=== PATIENT | female | born 1965 | race Caucasian/White ===

== ENCOUNTER 2018-10-17 18:10 | Emergency (ER) | payer OTHER, SELFPAY ==
[2018-10-17 18:24] VITALS: BP 188/110; PULSE 80; RESP 13; TEMP 36.8; O2SAT 99
[2018-10-17 19:14] LABS: Add Manual Diff / Slide Review NO; Basophils Absolute Auto 0 /uL (0-100); Basophils Percent Auto 0.4 % (0-2); Eosinophils Absolute Auto 0 /uL (0-450); Eosinophils Percent Auto 0.1 % (2-4); Hematocrit 45.6 % (36-46); Hemoglobin 15.6 g/dL (12.0-16.0); Lymphocytes Absolute Auto 1400 /uL (1100-4500); Lymphocytes Percent Auto 15.4 % (25-40); Mean Corpuscular HGB Conc 34.2 % (30-36); Mean Corpuscular Hemoglobin 29.2 PG (26-34); Mean Corpuscular Volume 85.3 fL (80-100); Monocytes Absolute Auto 500 /uL (0-900); Monocytes Percent Auto 4.9 % (3-14); Neutrophils Absolute Auto 7300 /uL (1500-7000); Neutrophils Percent Auto 79.2 % (50-75); Platelet Count 182 X10^3/uL (150-400); Red Blood Cell Count 5.34 X10^6/uL (4.0-5.2); Red Cell Distribution Width 13.3 % (11.6-14.8); White Blood Cell Count 9.3 X10^3/uL (4.5-11.0)
[2018-10-17] MEDS: METOCLOPRAMIDE 10 MG/2 ML INJ IV (19:21)
[2018-10-17] MEDS: SODIUM CHLORIDE 0.9% 1,000 ML 1000 ML IV (19:21)
[2018-10-17] MEDS: KETOROLAC 60 MG/2 ML VIAL 15 MG IV (19:22)
[2018-10-17] MEDS: diphenhydrAMINE 50 MG/ML VIAL 25 MG IV (19:22)
[2018-10-17] MEDS: DEXAMETHASONE 10 MG/ML VIAL IV (19:22)
[2018-10-17 19:31] LABS: Blood Urea Nitrogen 13 mg/dL (7-17); Calcium 9.7 mg/dL (8.4-10.2); Carbon Dioxide 26 mmol/L (22-32); Chloride 101 mmol/L (98-107); Estimated Glomerular Filt Rate > 60.0 mL/min (>60); Glucose 107 mg/dL (70-100); HEMOLYSIS < 15 (0-50); Potassium 3.7 mmol/L (3.4-5.1); Sodium 140 mmol/L (137-145)
[2018-10-17 19:33] LABS: C-Reactive Protein Quant < 0.5 mg/dL (<1.0)
[2018-10-17 19:34] LABS: Erythrocyte Sedimentation Rate 3 MM/HR (0-20)
--- NOTE | 2018-10-17 20:10 | ED_ITS ---
HPI - Headache General Chief Complaint: Headache Stated Complaint: Severe Migraine Time Seen by Provider: 10/17/18 18:26 Source: patient and family Mode of arrival: ambulatory Limitations: no limitations History of Present Illness HPI Narrative: 53-year-old female nonsmoker with history of migraines presents with her in the chief complaint of a gradually worsening left-sided migraine over the course of the day. It is worse with bright lights, loud noise and exertion. It is very typical of prior migraines. She denies any recent head injury nor fever, chills or neurologic symptoms. She denies any neck pain or focal neurologic findings such as numbness, weakness or tingling. At its worst her pain was 9/10, it is about an 8/10 on her arrival MD Complaint: headache and migraine Onset (ago): hour(s) Onset description: gradual Location: left Severity: similar to previous episodes Severity scale (1-10): 9 Quality: aching and throbbing Relieving factors: dark room Exacerbating factors: exertion, light and noise Associated symptoms: nausea and vomiting Treatments prior to arrival: none Related Data Previous Rx's Medication Instructions Recorded azithromycin 250 mg tablet See Rx Instructions PO .COMPLEX #6 07/14/18 tab ondansetron 4 mg PO TID-QID PRN #10 tab 10/17/18 Allergies Allergy/AdvReac Type Severity Reaction Status Date / Time amoxicillin [From Augmentin] Allergy Severe Feels Verified 07/14/18 19:17 like my whole body is bruised clavulanic acid Allergy Severe Feels Verified 07/14/18 19:17 [From Augmentin] like my whole body is bruised prochlorperazine Allergy Mild Verified 07/14/18 19:17 [PROCHLORPERAZINE] acetaminophen [From VICODIN] Allergy Unknown VOMITING Verified 07/14/18 19:17 hydrocodone [From VICODIN] Allergy Unknown VOMITING Verified 07/14/18 19:17 Penicillins [PENICILLINS] Allergy Unknown Verified 07/14/18 19:17 Opioids - Morphine Analogues AdvReac Mild headaches Verified 07/14/18 19:17 [OPIOIDS - MORPHINE ANALOGUES] pseudoephedrine AdvReac Mild insomnia Verified 07/14/18 19:17 [PSEUDOEPHEDRINE] Review of Systems Constitutional Denies chills, Denies fever(s), Reports headache(s), Denies lethargy and Denies weakness Eyes Denies change in vision, Denies eye discharge, Denies irritation and Denies loss of vision ENT Ears, Nose, Mouth, and Throat: Denies change in voice, Reports headache(s), Denies neck pain and Denies sore throat Cardiovascular Denies chest pain, Denies irregular heart rhythm, Denies lightheadedness, Denies palpitations, Denies dyspnea, Denies dyspnea on exertion and Denies orthopnea Respiratory Denies cough, Denies dyspnea, Denies dyspnea on exertion and Denies wheezing Gastrointestinal Gastrointestinal: Denies abdominal pain, Denies change in bowel habits, Denies diarrhea, Denies nausea and Denies vomiting Genitourinary Denies hematuria, Denies flank pain, Denies urinary incontinence and Denies urinary urgency Musculoskeletal Denies neck pain Integumentary/Breasts Denies pruritus, Denies erythema, Denies rash and Denies wounds Neurologic Denies confusion, Reports headache(s), Denies loss of vision and Denies weakness Psychiatric Denies anxiety, Denies confusion, Denies depression, Denies homicidal ideation and Denies suicidal ideation Endocrine Denies palpitations Hematologic/Lymphatic Denies easy bruising Allergic/Immunologic Denies wheezing [facility] Surgical History History of third molar tooth extraction Status post dilation and curettage Family History (Updated 11/08/15 @ 00:00 by Conversion Provider) Father Hypertension Mother Age: 71 Hypertension High cholesterol Social History Smoking Status: Never smoker Family History Father Hypertension Mother Age: 71 Hypertension High cholesterol Social History Smoking Status: Never smoker Exam Narrative Exam Narrative: GENERAL: [53] year old patient appears stated age. Well- nourished, well-developed patient, in mild distress. Massaging her left orthodox, sitting in a dark room HEAD: Atraumatic. Normocephalic. L orthodox tender to palp. No redness, swelling, or palpable blood vessels EYES: Pupils equal round and reactive. Extraocular motions intact. No scleral icterus. No injection or drainage. ENT: Nose without bleeding, purulent drainage. Throat without erythema, tonsillar hypertrophy or exudate. Airway patent. NECK: Trachea midline. Non tender, no meningeal signs CARDIOVASCULAR: Regular rate and rhythm without murmurs, gallops, or rubs. RESPIRATORY: Clear to auscultation. Breath sounds equal bilaterally. No wheezes, rales, or rhonchi. GASTROINTESTINAL: Abdomen soft, non-tender, nondistended. EXTREMITIES: No edema or joint tenderness. BACK: Nontender without deformity or crepitance. No flank tenderness. NEURO: AOx3. SKIN: No rash or erythema of visible areas Initial Vital Signs Initial Vital Signs: Vital Signs Temperature 98.2 F 10/17/18 18:24 Pulse Rate 80 10/17/18 18:24 Respiratory Rate 13 10/17/18 18:24 Blood Pressure 188/110 H 10/17/18 18:24 Pulse Oximetry 99 10/17/18 18:24 Course Orders Ordered: ED Orders 10/17/18 19:00 Basic Metabolic Panel Stat C-Reactive Protein Quant Stat Complete Blood Count AUTO DIFF Stat Erythrocyte Sedimentation Rate Stat Discontinued Medications Dexamethasone (Decadron) 10 mg IV NOW ONE Stop: 10/17/18 18:44 Last Admin: 10/17/18 19:22 Dose: 10 mg Diphenhydramine HCl (Benadryl) 25 mg IV NOW ONE Stop: 10/17/18 18:44 Last Admin: 10/17/18 19:22 Dose: 25 mg Sodium Chloride (Normal Saline 0.9%) 1,000 mls @ 1,000 mls/hr IV BOLUS ONE Stop: 10/17/18 19:42 Last Infusion: 10/17/18 20:31 Dose: 0 mls/hr Admin: 10/17/18 19:21 Dose: 1,000 mls/hr Ketorolac Tromethamine (Toradol) 15 mg IV NOW ONE Stop: 10/17/18 18:44 Last Admin: 10/17/18 19:22 Dose: 15 mg Metoclopramide HCl (Reglan) 10 mg IV NOW ONE Stop: 10/17/18 18:44 Last Admin: 10/17/18 19:21 Dose: 10 mg Ondansetron HCl (Zofran Odt Prepack) 1 bottle MISC SEEINSTR ONE Stop: 10/17/18 20:12 Last Admin: 10/17/18 20:27 Dose: 1 bottle Reevaluation(s) Reevaluation #1: Near complete resolution of symptoms after the above-stated therapies Vital Signs - 8 hr 10/17/18 18:24 10/17/18 20:58 Temperature 98.2 F Pulse Rate 80 79 Respiratory Rate 13 16 Blood Pressure 188/110 H 163/83 H Pulse Oximetry 99 99 MDM - Headache Lab Data Result diagrams: 10/17/18 19:00 10/17/18 19:00 Lab Results 10/17/18 10/17/18 Range/Units 19:00 19:00 WBC 9.3 (4.5-11.0) X10^3/uL RBC 5.34 H (4.0-5.2) X10^6/uL Hgb 15.6 (12.0-16.0) g/dL Hct 45.6 (36-46) % MCV 85.3 (80-100) fL MCH 29.2 (26-34) PG MCHC 34.2 (30-36) % RDW 13.3 (11.6-14.8) % Plt Count 182 (150-400) X10^3/uL Neut % (Auto) 79.2 H (50-75) % Lymph % (Auto) 15.4 L (25-40) % [place] % (Auto) 4.9 (3-14) % Eos % (Auto) 0.1 L (2-4) % Baso % (Auto) 0.4 (0-2) % Neut # (Auto) 7300 H (0577-0647) /uL Lymph # (Auto) 1400 (8941-9241) /uL [place] # (Auto) 500 (0-900) /uL Eos # (Auto) 0 (0-450) /uL Baso # (Auto) 0 (0-100) /uL ESR 3 (0-20) MM/HR Sodium 140 (137-145) mmol/L Potassium 3.7 (3.4-5.1) mmol/L Chloride 101 (98-107) mmol/L Carbon Dioxide 26 (22-32) mmol/L BUN 13 (7-17) mg/dL Creatinine 0.50 L (0.52-1.04) mg/dL Estimated GFR > 60.0 (>60) mL/min BUN/Creatinine Ratio 26.0 H (6-22) Glucose 107 H (70-100) mg/dL Calcium 9.7 (8.4-10.2) mg/dL C-Reactive Protein < 0.5 (<1.0) mg/dL MDM Narrative Medical decision making narrative: Multiple etiologies for patient's symptoms considered including: [Migraine versus subarachnoid hemorrhage versus giant cell arteritis versus other] Patient's symptoms improved or duration of stay with above-stated therapies. Findings and discharge diagnosis discussed with patient/family followed by verbalization of understanding Return precautions discussed with patient/family whom verbalize understanding. Discharge Plan Departure Patient Disposition: Home Clinical Impression: Migraine Qualifiers: Migraine type: unspecified Status migrainosus presence: without status migrainosus Intractability: not intractable Qualified Code(s): G43.909 - Migraine, unspecified, not intractable, without status migrainosus Discharge Date/Time: 10/17/18 20:58 Interventions: ED Discharge Assessment Last Done: 10/17/18 20:58 Instructions: DI for Headache Activity Restrictions/Additional Instructions: *You have been diagnosed with [headache, likely migraine] *What to do: *Take medications as directed *Follow up with your primary care provider in 2-3 days, call for an appointment. Let them know you were seen in the Emergency Department and that we ask that you be seen in follow up *Return to ER if you should have any new, worsening or concerning symptoms Prescriptions: New ondansetron 4 mg tablet,disintegrating 4 mg PO TID-QID PRN (Reason: nausea and vomiting) Qty: 10 RF: 0 No Action azithromycin 250 mg tablet See Rx Instructions PO .COMPLEX Qty: 6 RF: 1 Referrals: Taya Nicholas DO [Primary Care Provider] -
[2018-10-17] MEDS: ONDANSETRON 4 MG ODT PREPACK 1 BOTTLE MISC (20:27)
[2018-10-17 20:58] VITALS: BP 163/83; PULSE 79; RESP 16; O2SAT 99
== END 2018-10-17 20:58 | disposition home or self-care (01) ==
PROVIDERS: Emergency Provider Emergency Medicine; PCP Family Medicine
DX: G43.909 Migraine, unspecified, not intractable, without status migrainosus (principal)
CPT/HCPCS: 36591; 80048; 85025; 85651; 86140; 96361; 96374; 96375; 99283; 99284; J1100; J1200; J1885; J2765

== ENCOUNTER 2018-10-21 09:51 | Emergency (ER) | payer OTHER, SELFPAY ==
[2018-10-21 09:51] VITALS: BP 177/104; PULSE 81; RESP 16; TEMP 36.5; O2SAT 98; BMI 29.7
[2018-10-21 10:30] VITALS: BP 158/92; PULSE 66; RESP 15; O2SAT 98
--- NOTE | 2018-10-21 11:04 | ED_ITS ---
HPI - Dizziness General Chief Complaint: Dizziness Stated Complaint: Dizzy Time Seen by Provider: 10/21/18 10:03 Source: patient Mode of arrival: ambulatory Limitations: no limitations History of Present Illness HPI Narrative: Patient comes to the emergency department complaining of dizziness and ?haziness? that has been going on since treatment for migraine 4 days ago. Patient states that she was feeling better after treatment when she was here on Thursday, and that she went home and slept well. She states that the next day, she felt very tired, which is normal for her after having a migraine. However, she was not able to sleep well that night, and has not slept well any night since. Patient states that for the past 3 nights, she has slept no more than 5 hours, and that prior to seeking treatment for the migraine, she had also not slept well. Patient states that normally, she sleeps 8 hours per night. Patient states she just feels as though her brain is in a haze, and she can't think clearly. She states that when she stands up, she has to take a few seconds to get her bearings, and then she can walk. She states she does not have to hold onto anything while she walks, and is not staggering around. Patient denies incoordination of her extremities, and no focal weakness, numbness, or tingling. No visual changes. No facial weakness. Patient states that she has a longstanding history of migraines, but has never had auras or any symptoms like she is having currently. Patient states she has a vague ache in her temples and behind her eyes. She also states she has a burning hot sensatio n over her neck and the back of her head. No itching or swelling. No known allergic reactions recently. Patient does note that she had a temperature of 100? last night. No dysuria. No nausea or vomiting. No other complaints at this time. Patient states she has been drinking plenty of water every day. Related Data Home Medications Medication Instructions Recorded Confirmed Acidophilus 1 cap PO QPM 10/21/18 10/21/18 iron 1 tab PO QPM 10/21/18 10/21/18 Previous Rx's Medication Instructions Recorded ondansetron 4 mg PO TID-QID PRN #10 tab 10/17/18 Allergies Allergy/AdvReac Type Severity Reaction Status Date / Time amoxicillin [From Augmentin] Allergy Severe Feels Verified 10/21/18 09:56 like my whole body is bruised clavulanic acid Allergy Severe Feels Verified 10/21/18 09:56 [From Augmentin] like my whole body is bruised prochlorperazine Allergy Mild Verified 10/21/18 09:56 [PROCHLORPERAZINE] acetaminophen [From VICODIN] Allergy Unknown VOMITING Verified 10/21/18 09:56 hydrocodone [From VICODIN] Allergy Unknown VOMITING Verified 10/21/18 09:56 Penicillins [PENICILLINS] Allergy Unknown Verified 10/21/18 09:56 Opioids - Morphine Analogues AdvReac Mild headaches Verified 10/21/18 09:56 [OPIOIDS - MORPHINE ANALOGUES] pseudoephedrine AdvReac Mild insomnia Verified 10/21/18 09:56 [PSEUDOEPHEDRINE] Review of Systems Constitutional Constitutional: Denies chills, Denies fatigue, Denies fever(s), Denies frequent falls, Denies lethargy and Denies weakness Comments: Lightheadedness, lack of mental clarity Eyes Eyes: Denies change in vision, Denies eye discharge, Denies irritation and Denies loss of vision ENT Ears, Nose, Mouth, and Throat: Denies change in voice, Denies dizziness, Denies neck pain, Denies sore throat and Denies throat swelling Comments: Headache Cardiovascular Cardiovascular: Denies chest pain, Denies irregular heart rhythm, Denies lightheadedness, Denies palpitations, Denies dyspnea, Denies dyspnea on exertion and Denies orthopnea Respiratory Respiratory: Denies cough, Denies dyspnea, Denies dyspnea on exertion and Denies wheezing Gastrointestinal Gastrointestinal: Denies abdominal pain, Denies change in bowel habits, Denies diarrhea, Denies nausea and Denies vomiting Genitourinary Genitourinary: Denies hematuria, Denies flank pain, Denies urinary incontinence and Denies urinary urgency Musculoskeletal Musculoskeletal: Denies back pain, Denies muscle weakness, Denies neck pain, Denies numbness and Denies tingling Integumentary/Breasts Skin/Breast: Denies pruritus, Denies erythema, Denies rash and Denies wounds Comments: Burning and heat over posterior neck. Neurologic Neurologic: Denies behavioral changes, Denies confusion, Denies dizziness, Denies frequent falls, Denies loss of vision, Denies numbness, Denies tingling and Denies weakness Psychiatric Psychiatric: Denies anxiety, Denies behavioral changes, Denies confusion, Denies depression, Denies homicidal ideation and Denies suicidal ideation Endocrine Endocrine: Denies fatigue, Denies flushing and Denies palpitations Hematologic/Lymphatic Hematologic/Lymphatic: Denies easy bruising Allergic/Immunologic Allergic/Immunologic: Denies urticaria, Denies throat swelling and Denies wheezing [facility] Medical History Migraine (Acute) Right ankle sprain (Acute) Surgical History History of third molar tooth extraction No pertinent past surgical history (Acute) Status post dilation and curettage Family History Father Hypertension Mother Age: 71 Hypertension High cholesterol Social History Smoking Status: Former smoker Family History Father Hypertension Mother Age: 71 Hypertension High cholesterol Social History Smoking Status: Former smoker Exam Initial Vital Signs Initial Vital Signs: Vital Signs Temperature 97.7 F 10/21/18 09:51 Pulse Rate 81 10/21/18 09:51 Respiratory Rate 16 10/21/18 09:51 Blood Pressure 177/104 H 10/21/18 09:51 Pulse Oximetry 98 10/21/18 09:51 Const General: cooperative and well developed Nutritional Appearance: well nourished Orientation: alert, awake, oriented x3 and not confused [facility] Head: normocephalic and atraumatic Ears: external ears normal Nose: external nose normal and No nasal discharge Face and sinus: face symmetric and No dry mucous membranes Mouth: oral mucosae normal and moist mucous membranes Teeth and gingiva: dentition normal Eyes General: appearance normal, both eyes and all related structures Eyelids: eyelids normal Conjunctivae: conjunctivae normal Sclera: sclerae normal Pupils: PERRL EOM: EOM intact bilaterally Neck Neck: normal visual inspection, trachea midline, No lymphadenopathy, No midline deformity and No JVD Lymphatic: No lymphedema Chest Chest: normal inspection of the chest Resp Effort & Inspection: normal respiratory effort, able to speak in complete sentences, no respiratory distress and no use of accessory muscles Auscultation: clear to auscultation bilaterally, no rales, no rhonchi and no wheezes Cardio Rate: regular rate Rhythm: regular rhythm Heart Sounds: no click, no gallops, no murmurs and no rubs Pulses: normal peripheral pulses GI Inspection: non-distended Palpation: soft, no hepatosplenomegaly, No guarding, No pulsatile mass and No tender Auscultation: normal bowel sounds Back/Spine/Pelvis Back: No CVA tenderness Cervical Spine: cervical ROM normal and No pain with cervical ROM Thoracic/Lumbar Spine: thoracic and lumbar spine normal to inspection Skin General: No jaundice and No petechiae Other: Patient has a flat, macular rash involving the back of her neck and her superior shoulders. No edema. No excoriations. Neuro General: alert, oriented x3, gait normal and no focal motor deficits Speech: speech normal Extrem General: full ROM, no clubbing, cyanosis or edema, no pedal edema and no calf tenderness Psych Appearance: well kempt Mental Status: mental status grossly normal Attitude: cooperative Thought Content: normal and suicidality Judgment: judgment good Course Course Course Narrative: The patient's exam was fairly normal, other than the rash on the back of her neck, and her symptoms were vague. Without a long discussion about this, and I do feel that the repeated nights of significantly decreased sleep are most likely at least partially to blame. She has been given a L of IV fluid, worked up with labs and CT of the head. Patient was found to be feeling better on re-evaluation. I discussed with her the need to get some rest and sleep over the next couple of days, and to this end, I have given her a few days off work. We have discussed the need to drink plenty of fluids. The patient's workup was negative, and I felt she was stable for discharge home. We have discussed the usual indications for return. Orders Ordered: Discontinued Medications Sodium Chloride (Normal Saline 0.9%) 1,000 mls @ 1,000 mls/hr IV BOLUS ONE Stop: 10/21/18 12:00 Last Infusion: 10/21/18 13:09 Dose: 0 mls/hr Documented by: Admin: 10/21/18 11:13 Dose: 1,000 mls/hr Documented by: [email or web address] Ketorolac Tromethamine (Toradol) 30 mg IV NOW ONE Stop: 10/21/18 11:02 Last Admin: 10/21/18 11:15 Dose: 30 mg Documented by: DEMETRIA Vital Signs Vital signs: Vital Signs - 8 hr 10/21/18 09:51 10/21/18 10:30 Temperature 97.7 F Pulse Rate 81 66 Respiratory Rate 16 15 Blood Pressure 177/104 H Blood Pressure [Right Arm] 158/92 H Pulse Oximetry 98 98 MDM - Dizziness Medical Records Attestation: I reviewed the patient's medical records. Lab Data Attestation: I reviewed the patient's lab results. Result diagrams: 10/21/18 11:03 10/21/18 11:03 Labs: Lab Results 10/21/18 10/21/18 Range/Units 11:03 11:03 WBC 5.6 (4.5-11.0) X10^3/uL RBC 5.36 H (4.0-5.2) X10^6/uL Hgb 15.5 (12.0-16.0) g/dL Hct 45.6 (36-46) % MCV 85.1 (80-100) fL MCH 28.9 (26-34) PG MCHC 34.0 (30-36) % RDW 13.3 (11.6-14.8) % Plt Count 177 (150-400) X10^3/uL Neut % (Auto) 62.1 (50-75) % Lymph % (Auto) 28.3 (25-40) % [place] % (Auto) 6.9 (3-14) % Eos % (Auto) 1.8 L (2-4) % Baso % (Auto) 0.9 (0-2) % Neut # (Auto) 3500 (0397-1952) /uL Lymph # (Auto) 1600 (3683-8035) /uL [place] # (Auto) 400 (0-900) /uL Eos # (Auto) 100 (0-450) /uL Baso # (Auto) 100 (0-100) /uL Sodium 142 (137-145) mmol/L Potassium 3.9 (3.4-5.1) mmol/L Chloride 102 (98-107) mmol/L Carbon Dioxide 29 (22-32) mmol/L BUN 14 (7-17) mg/dL Creatinine 0.60 (0.52-1.04) mg/dL Estimated GFR > 60.0 (>60) mL/min BUN/Creatinine Ratio 23.3 H (6-22) Glucose 92 (70-100) mg/dL Calcium 10.0 (8.4-10.2) mg/dL Total Bilirubin 0.6 (0.2-1.3) mg/dL AST 25 (14-36) IU/L ALT 23 (9-52) IU/L Alkaline Phosphatase 60 (38-126) U/L Total Protein 8.2 (6.3-8.2) g/dL Albumin 4.9 (3.5-5.0) g/dL Globulin 3.3 (1.7-4.1) g/dL Albumin/Globulin Ratio 1.5 (1.0-2.8) Imaging Data CT scan - head: Radiologist's impression: PROCEDURE: CT HEAD/BRAIN WO CON INDICATIONS: dizziness, balance issues TECHNIQUE: Noncontrast 4.5 mm thick angled axial sections acquired from the foramen magnum to the vertex, with coronal and sagittal reformats. For radiation dose reduction, the following was used: automated exposure control, adjustment of mA and/or kV according to patient size. COMPARISON: None. FINDINGS: Image quality: Excellent. CSF spaces: Basal cisterns are patent. No extra-axial fluid collections. V entricles are normal in size and shape. Brain: No intracranial hemorrhage, mass, or mass effect. Braun-white matter interface is preserved. Skull and face: Calvarium and visualized facial bones are intact, without suspicious lesions. Sinuses: Visualized sinuses and mastoids are clear. IMPRESSION: 1. No acute intracranial abnormality. Dictated by: Oscar Ross M.D. on 10/21/2018 at 11:37 Approved by: Oscar Ross M.D. on 10/21/2018 at 11:41 ECG Data Attestation: I personally reviewed and interpreted this ECG as follows: (See below) Interpretation: Twelve lead EKG performed October 21, 2018 at 9:50 a.m., as follows: Regular ventricular rhythm with a rate of 73 beats per minute AK interval 146 milliseconds QRS duration 91 millisecond QTC interval 431 millisecond No ectopy No significant ST T wave changes Interpretation: Normal sinus rhythm; no signs of acute ischemia; normal EKG as interpreted by ED MD. Discharge Plan Departure Patient Disposition: Home Clinical Impression: Dizziness Migraine Qualifiers: Migraine type: with aura Status migrainosus presence: with status migrainosus Intractability: not intractable Qualified Code(s): G43.101 - Migraine with aura, not intractable, with status migrainosus Insomnia Qualifiers: Insomnia type: unspecified Qualified Code(s): G47.00 - Insomnia, unspecified Discharge Date/Time: 10/21/18 13:20 Instructions: DI for Migraine, DI for Insomnia, DI for Dizziness-Nonvertigo Activity Restrictions/Additional Instructions: Your repeat labs and CT scan looked good. There is no evidence of an emergent condition causing your symptoms. Sometimes, and migraine aura can cause similar symptoms to what you are having. Additionally, you have been getting severely abbreviated sleep at night, and this can also cause a feeling of mental haziness and unsteadiness as you are having currently. You should take the next couple of days and try to get plenty of rest. There is no indication of any infection or other underlying serious condition as a cause of your symptoms. If symptoms continue, he will need to follow up with your primary doctor to discuss further workup of your symptoms. Prescriptions: No Action ondansetron 4 mg tablet,disintegrating 4 mg PO TID-QID PRN (Reason: nausea and vomiting) Qty: 10 RF: 0 Acidophilus 1 cap PO QPM RF: 0 iron 1 tab PO QPM RF: 0 Referrals: Taya Nicholas DO [Primary Care Provider] - Stand Alone Forms: Work Release Note
[2018-10-21] MEDS: SODIUM CHLORIDE 0.9% 1,000 ML 1000 ML IV (11:13)
[2018-10-21 11:14] LABS: Add Manual Diff / Slide Review NO; Basophils Absolute Auto 100 /uL (0-100); Basophils Percent Auto 0.9 % (0-2); Eosinophils Absolute Auto 100 /uL (0-450); Eosinophils Percent Auto 1.8 % (2-4); Hematocrit 45.6 % (36-46); Hemoglobin 15.5 g/dL (12.0-16.0); Lymphocytes Absolute Auto 1600 /uL (1100-4500); Lymphocytes Percent Auto 28.3 % (25-40); Mean Corpuscular Hemoglobin 28.9 PG (26-34); Mean Corpuscular Volume 85.1 fL (80-100); Monocytes Absolute Auto 400 /uL (0-900); Monocytes Percent Auto 6.9 % (3-14); Neutrophils Absolute Auto 3500 /uL (1500-7000); Neutrophils Percent Auto 62.1 % (50-75); Platelet Count 177 X10^3/uL (150-400); Red Blood Cell Count 5.36 X10^6/uL (4.0-5.2); Red Cell Distribution Width 13.3 % (11.6-14.8); White Blood Cell Count 5.6 X10^3/uL (4.5-11.0)
[2018-10-21] MEDS: KETOROLAC 60 MG/2 ML VIAL 30 MG IV (11:15)
--- NOTE | 2018-10-21 11:15 | DI.CT.S_ITS ---
PROCEDURE: CT HEAD/BRAIN WO CON INDICATIONS: dizziness, balance issues TECHNIQUE: Noncontrast 4.5 mm thick angled axial sections acquired from the foramen magnum to the vertex, with coronal and sagittal reformats. For radiation dose reduction, the following was used: automated exposure control, adjustment of mA and/or kV according to patient size. COMPARISON: None. FINDINGS: Image quality: Excellent. CSF spaces: Basal cisterns are patent. No extra-axial fluid collections. Ventricles are normal in size and shape. Brain: No intracranial hemorrhage, mass, or mass effect. Braun-white matter interface is preserved. Skull and face: Calvarium and visualized facial bones are intact, without suspicious lesions. Sinuses: Visualized sinuses and mastoids are clear. IMPRESSION: 1. No acute intracranial abnormality. Dictated by: Oscar Ross M.D. on 10/21/2018 at 11:37 Approved by: Oscar Ross M.D. on 10/21/2018 at 11:41
[2018-10-21 11:25] LABS: Alanine Aminotransferase 23 IU/L (9-52); Albumin 4.9 g/dL (3.5-5.0); Albumin Globulin Ratio 1.5 (1.0-2.8); Alkaline Phosphatase 60 U/L (38-126); Aspartate Aminotransferase 25 IU/L (14-36); BUN Creatinine Ratio 23.3 (6-22); Bilirubin Total 0.6 mg/dL (0.2-1.3); Blood Urea Nitrogen 14 mg/dL (7-17); Carbon Dioxide 29 mmol/L (22-32); Chloride 102 mmol/L (98-107); Estimated Glomerular Filt Rate > 60.0 mL/min (>60); Globulin 3.3 g/dL (1.7-4.1); Glucose 92 mg/dL (70-100); HEMOLYSIS < 15 (0-50); Potassium 3.9 mmol/L (3.4-5.1); Sodium 142 mmol/L (137-145); Total Protein 8.2 g/dL (6.3-8.2)
[2018-10-21 11:30] VITALS: BP 171/107; PULSE 56; RESP 17; O2SAT 98
[2018-10-21 12:30] VITALS: BP 168/97; PULSE 71; RESP 14; O2SAT 98
== END 2018-10-21 13:20 | disposition home or self-care (01) ==
PROVIDERS: Emergency Provider Emergency Medicine; PCP Family Medicine
DX: R42 Dizziness and giddiness (principal); G43.101 Migraine with aura, not intractable, with status migrainosus; G47.00 Insomnia, unspecified
CPT/HCPCS: 36591; 70450; 80053; 85025; 93005; 96361; 96374; 99283; 99285; J1885

== ENCOUNTER → 2018-12-16 08:05 | Outpatient (CLI) | payer OTHER, SELFPAY ==
[2018-12-16 08:42] LABS: Add Manual Diff / Slide Review NO; Basophils Absolute Auto 100 /uL (0-100); Basophils Percent Auto 0.8 % (0-2); Eosinophils Absolute Auto 200 /uL (0-450); Eosinophils Percent Auto 2.7 % (2-4); Hematocrit 41.6 % (36-46); Hemoglobin 14.2 g/dL (12.0-16.0); Lymphocytes Absolute Auto 1500 /uL (1100-4500); Lymphocytes Percent Auto 19.9 % (25-40); Mean Corpuscular HGB Conc 34.1 % (30-36); Mean Corpuscular Hemoglobin 29.3 PG (26-34); Monocytes Absolute Auto 800 /uL (0-900); Monocytes Percent Auto 10.5 % (3-14); Neutrophils Absolute Auto 5000 /uL (1500-7000); Neutrophils Percent Auto 66.1 % (50-75); Platelet Count 200 X10^3/uL (150-400); Red Blood Cell Count 4.84 X10^6/uL (4.0-5.2); Red Cell Distribution Width 13.6 % (11.6-14.8); White Blood Cell Count 7.6 X10^3/uL (4.5-11.0)
[2018-12-16 09:00] LABS: Alanine Aminotransferase 22 IU/L (9-52); Albumin 4.3 g/dL (3.5-5.0); Albumin Globulin Ratio 1.5 (1.0-2.8); Alkaline Phosphatase 57 U/L (38-126); Aspartate Aminotransferase 25 IU/L (14-36); BUN Creatinine Ratio 28.3 (6-22); Bilirubin Total 0.6 mg/dL (0.2-1.3); Blood Urea Nitrogen 17 mg/dL (7-17); Calcium 9.2 mg/dL (8.4-10.2); Carbon Dioxide 28 mmol/L (22-32); Chloride 104 mmol/L (98-107); Cholesterol 246 mg/dL (140-199); Estimated Glomerular Filt Rate > 60.0 mL/min (>60); Globulin 2.9 g/dL (1.7-4.1); Glucose 91 mg/dL (70-100); HDL Cholesterol 62 mg/dL (40-60); HEMOLYSIS < 15 (0-50); LDL Cholesterol Calculated 170 mg/dL (<100); Sodium 141 mmol/L (137-145); Total Protein 7.2 g/dL (6.3-8.2); Triglycerides 68 mg/dL (35-150)
[2018-12-16 09:38] LABS: Thyroid Stimulating Hormone 1.95 uIU/mL (0.47-4.68)
== END ==
PROVIDERS: PCP Family Medicine; Visit Provider Hospitalist
DX: G43.909 Migraine, unspecified, not intractable, without status migrainosus (principal)
CPT/HCPCS: 36415; 80053; 80061; 84443; 85025

== ENCOUNTER 2019-08-27 12:48 | Emergency (ER) | payer SELFPAY ==
[2019-08-27] VITALS (14 sets, daily range): BP systolic 128–164; BP diastolic 79–94; PULSE 91–110; RESP 14–19; TEMP 37.8–39.2; O2SAT 92–97; BMI 30.2
--- NOTE | 2019-08-27 13:44 | ED_ITS ---
HPI - Nausea/Vomiting/Diarrhea <Dinorah Ulloa, ROLL THREADER OPERATOR-BC - Last Filed: 08/27/19 19:47> General Chief complaint: Nausea/Vomiting/Diarrhea Stated complaint: Watery diarrhea, bad headache Time Seen by Provider: 08/27/19 12:57 Source: patient Mode of arrival: Family Vehicle Limitations: no limitations History of Present Illness HPI Narrative: The patient is a 53-year-old female former smoker with history of migraine and dizziness who presents with a chief complaint of abdominal pain and multiple episodes of watery diarrhea. She states she has had at least 20 episodes of watery diarrhea, this feels similar to when she had dysentery. She denies any vomiting, but complains of nausea. She denies any fevers he has taken Pepto to feel better but that did not help. She states that she started eating fried pickles, a restaurant she has never had before. She ate out yesterday before this started at a restaurant in [place]. She denies any specific focal abdominal pain, rather complains of cramping with diarrheal episodes. She denies any history of abdominal surgeries. She denies any chest pain or shortness of breath. She denies any blood in her stool. She denies any dysuria urgency or frequency. She is several years postmenopausal. Related Data Home Medications Medication Instructions Recorded Confirmed Acidophilus 1 cap PO QPM 10/21/18 12/15/18 iron 1 tab PO QPM 10/21/18 12/15/18 Previous Rx's Medication Instructions Recorded rizatriptan 5 mg disintegrating 5 mg PO ONCE #10 tab 12/15/18 tablet levofloxacin 500 mg PO DAILY #7 tab 08/27/19 ondansetron 4 mg PO Q6H PRN #14 tab 08/27/19 Allergies Allergy/AdvReac Type Severity Reaction Status Date / Time amoxicillin [From Augmentin] Allergy Severe Feels Verified 08/27/19 13:12 like my whole body is bruised clavulanic acid Allergy Severe Feels Verified 08/27/19 13:12 [From Augmentin] like my whole body is bruised prochlorperazine Allergy Mild Verified 08/27/19 13:12 [PROCHLORPERAZINE] acetaminophen [From VICODIN] Allergy Unknown VOMITING Verified 08/27/19 13:12 hydrocodone [From VICODIN] Allergy Unknown VOMITING Verified 08/27/19 13:12 Penicillins [PENICILLINS] Allergy Unknown Verified 08/27/19 13:12 Opioids - Morphine Analogues AdvReac Mild headaches Verified 08/27/19 13:12 [OPIOIDS - MORPHINE ANALOGUES] pseudoephedrine AdvReac Mild insomnia Verified 08/27/19 13:12 [PSEUDOEPHEDRINE] Review of Systems <CAROL Saucedo - Last Filed: 08/27/19 19:47> Review of Systems Narrative: GENERAL: Denies chills, fatigue, malaise, fever, sweats. HEENT: Denies sinus pain, ear pain, sore throat, difficulty swallowing, dizziness. RESPIRATORY: Denies dyspnea, cough, wheezing, hemoptysis, sputum. CARDIOVASCULAR: Denies chest pain, palpitations, orthopnea, edema, GASTROINTESTINAL: See HPI : Denies dysuria, frequency, incontinence, hematuria, urinary retention. MUSCULOSKELETAL: denies weakness, joint pain, or bony pain SKIN: Denies rash, skin lesions, or other NEUROLOGIC: Denies weakness, headache, numbness, change in speech, confusion, seizures, incoordination. PSYCHIATRIC: No concerning psychosocial issues. 12 point review of systems is negative except for those stated above Patient History <CAROL Saucedo - Last Filed: 08/27/19 19:47> Medical History Allergies (Chronic) Anemia (Chronic) Headache (Chronic) Migraine (Chronic) Ovarian cyst (Chronic) Right ankle sprain (Acute) Vertigo (Chronic) Surgical History Anesthesia (Resolved) History of ankle surgery (Resolved ~2007) History of third molar tooth extraction No pertinent past surgical history (Acute) Status post dilation and curettage (~2013) Family History Father Hypertension Mother Age: 72 Hypertension High cholesterol Grandfather Stroke Grandmother Broken hip Social History Smoking Status: Former smoker Smoking Status: Former smoker alcohol intake frequency: 0-2 drinks per day Substance Use Type: does not use Exam <HORTENSIA Saucedo-BC - Last Filed: 08/27/19 19:47> Narrative Exam Narrative: GENERAL: This is a well-nourished, well-developed patient, in no acute distress HEAD: Atraumatic. Normocephalic. No temporal or scalp tenderness. EYES: Pupils equal round and reactive. Extraocular motions intact. No scleral icterus. No injection or drainage. ENT: Nose without bleeding, purulent drainage or septal hematoma. Throat without erythema, tonsillar hypertrophy or exudate. Uvula midline. Airway patent. NECK: Trachea midline. No JVD or lymphadenopathy. Supple, nontender, no meningeal signs. CARDIOVASCULAR: Regular rate and rhythm RESPIRATORY: Clear to auscultation. Breath sounds equal bilaterally. No wheezes, rales, or rhonchi. No cough. No increased respiratory effort. No accessory muscle use GASTROINTESTINAL: Abdomen soft, diffusely tender to palpation, nondistended. No hepato-splenomegaly, or palpable masses. No guarding. Negative Nunez sign. Active bowel sounds all 4 quadrants. EXTREMITIES: No clubbing, cyanosis, or edema. No joint tenderness, effusion, or edema noted. BACK: Nontender without deformity or crepitance. No flank tenderness. NEURO: AOx3. SKIN: No rash or erythema on visible skin Initial Vital Signs Initial Vital Signs: Vital Signs Temperature 100.1 F H 08/27/19 13:07 Pulse Rate 104 H 08/27/19 13:07 Respiratory Rate 18 08/27/19 13:07 Blood Pressure 140/94 H 08/27/19 13:07 Pulse Oximetry 96 08/27/19 13:07 <Tacho Munguia MD - Last Filed: 08/28/19 07:26> Initial Vital Signs Initial Vital Signs: Vital Signs Temperature 100.1 F H 08/27/19 13:07 Pulse Rate 104 H 08/27/19 13:07 Respiratory Rate 18 08/27/19 13:07 Blood Pressure 140/94 H 08/27/19 13:07 Pulse Oximetry 96 08/27/19 13:07 Scores <DAPHNE SaucedoBC - Last Filed: 08/27/19 19:47> GCS Cam coma scale eye opening: Spontaneous [place] coma scale verbal response: Orientated [place] coma scale motor response: Obey commands [place] coma scale total score: 15 Course <Dinorahmagalis Clairemer, ROLL THREADER OPERATOR-BC - Last Filed: 08/27/19 19:47> Orders Ordered: Discontinued Medications Acetaminophen (Tylenol) 975 mg PO NOW ONE Stop: 08/27/19 18:04 Last Admin: 08/27/19 18:10 Dose: 975 mg Documented by: ARVIND Dexamethasone (Decadron) 10 mg IV NOW ONE Stop: 08/27/19 17:09 Last Admin: 08/27/19 17:32 Dose: 10 mg Documented by: ARVIND Sodium Chloride (Normal Saline 0.9%) 1,000 mls @ 1,000 mls/hr IV BOLUS ONE Stop: 08/27/19 14:26 Last Infusion: 08/27/19 14:50 Dose: 1,000 mls/hr Documented by: Admin: 08/27/19 13:48 Dose: 1,000 mls/hr Documented by: MARIOLA Sodium Chloride (Normal Saline 0.9%) 1,000 mls @ 1,000 mls/hr IV BOLUS ONE Stop: 08/27/19 14:42 Last Infusion: 08/27/19 14:50 Dose: 1,000 mls/hr Documented by: Admin: 08/27/19 13:49 Dose: 1,000 mls/hr Documented by: MARIOLA Sodium Chloride (Normal Saline 0.9%) 1,000 mls @ 150 mls/hr IV CONT ANKUR Last Infusion: 08/27/19 19:51 Dose: 0 mls/hr Documented by: Admin: 08/27/19 17:34 Dose: 150 mls/hr Documented by: ARVIND Ketorolac Tromethamine (Toradol) 30 mg IV NOW ONE Stop: 08/27/19 16:54 Last Admin: 08/27/19 17:32 Dose: 30 mg Documented by: ARVIND Levofloxacin (Levaquin) 500 mg PO NOW ONE Stop: 08/27/19 18:47 Last Admin: 08/27/19 19:05 Dose: 500 mg Documented by: ARVIND Ondansetron HCl (Zofran) 4 mg IV NOW ONE Stop: 08/27/19 13:28 Last Admin: 08/27/19 13:48 Dose: 4 mg Documented by: MARIOLA Ondansetron HCl (Zofran Odt Prepack) 1 bottle MISC SEEINSTR ONE Stop: 08/27/19 18:47 Last Admin: 08/27/19 19:36 Dose: 1 bottle Documented by: JUNE Vital Signs Vital signs: Vital Signs - 8 hr 08/27/19 13:07 08/27/19 14:57 08/27/19 16:06 Temperature 100.1 F H Pulse Rate 104 H 94 H 103 H Respiratory Rate 18 16 14 Blood Pressure 140/94 H 156/91 H 164/84 H Pulse Oximetry 96 96 08/27/19 16:38 08/27/19 16:55 08/27/19 17:00 Temperature Pulse Rate 110 H 103 H 104 H Respiratory Rate Blood Pressure 163/91 H Pulse Oximetry 96 95 97 08/27/19 17:30 08/27/19 17:45 08/27/19 18:00 Temperature 102.6 F H Pulse Rate 100 H 101 H 107 H Respiratory Rate 19 Blood Pressure 149/84 H 149/84 H 138/83 Pulse Oximetry 93 92 93 08/27/19 18:10 08/27/19 18:30 08/27/19 18:48 Temperature 102.6 F H 100.1 F H Pulse Rate 98 H 99 H Respiratory Rate 15 Blood Pressure 129/81 129/81 Pulse Oximetry 93 96 08/27/19 19:00 08/27/19 19:30 Temperature Pulse Rate 96 H 91 H Respiratory Rate Blood Pressure 137/79 128/79 Pulse Oximetry 93 92 <Tacho Munguia MD - Last Filed: 08/28/19 07:26> Orders Ordered: Discontinued Medications Acetaminophen (Tylenol) 975 mg PO NOW ONE Stop: 08/27/19 18:04 Last Admin: 08/27/19 18:10 Dose: 975 mg Documented by: ARVIND Dexamethasone (Decadron) 10 mg IV NOW ONE Stop: 08/27/19 17:09 Last Admin: 08/27/19 17:32 Dose: 10 mg Documented by: ARVIND Sodium Chloride (Normal Saline 0.9%) 1,000 mls @ 1,000 mls/hr IV BOLUS ONE Stop: 08/27/19 14:26 Last Infusion: 08/27/19 14:50 Dose: 1,000 mls/hr Documented by: Admin: 08/27/19 13:48 Dose: 1,000 mls/hr Documented by: MARIOLA Sodium Chloride (Normal Saline 0.9%) 1,000 mls @ 1,000 mls/hr IV BOLUS ONE Stop: 08/27/19 14:42 Last Infusion: 08/27/19 14:50 Dose: 1,000 mls/hr Documented by: Admin: 08/27/19 13:49 Dose: 1,000 mls/hr Documented by: MARIOLA Sodium Chloride (Normal Saline 0.9%) 1,000 mls @ 150 mls/hr IV CONT ANKUR Last Infusion: 08/27/19 19:51 Dose: 0 mls/hr Documented by: Admin: 08/27/19 17:34 Dose: 150 mls/hr Documented by: ARVIND Ketorolac Tromethamine (Toradol) 30 mg IV NOW ONE Stop: 08/27/19 16:54 Last Admin: 08/27/19 17:32 Dose: 30 mg Documented by: ARVIND Levofloxacin (Levaquin) 500 mg PO NOW ONE Stop: 08/27/19 18:47 Last Admin: 08/27/19 19:05 Dose: 500 mg Documented by: ARVIND Ondansetron HCl (Zofran) 4 mg IV NOW ONE Stop: 08/27/19 13:28 Last Admin: 08/27/19 13:48 Dose: 4 mg Documented by: MARIOLA Ondansetron HCl (Zofran Odt Prepack) 1 bottle MISC SEEINSTR ONE Stop: 08/27/19 18:47 Last Admin: 08/27/19 19:36 Dose: 1 bottle Documented by: JUNE Vital Signs Vital signs: Vital Signs - 8 hr 08/27/19 13:07 08/27/19 14:57 08/27/19 16:06 Temperature 100.1 F H Pulse Rate 104 H 94 H 103 H Respiratory Rate 18 16 14 Blood Pressure 140/94 H 156/91 H 164/84 H Pulse Oximetry 96 96 08/27/19 16:38 08/27/19 16:55 08/27/19 17:00 Temperature Pulse Rate 110 H 103 H 104 H Respiratory Rate Blood Pressure 163/91 H Pulse Oximetry 96 95 97 08/27/19 17:30 08/27/19 17:45 08/27/19 18:00 Temperature 102.6 F H Pulse Rate 100 H 101 H 107 H Respiratory Rate 19 Blood Pressure 149/84 H 149/84 H 138/83 Pulse Oximetry 93 92 93 08/27/19 18:10 08/27/19 18:30 08/27/19 18:48 Temperature 102.6 F H 100.1 F H Pulse Rate 98 H 99 H Respiratory Rate 15 Blood Pressure 129/81 129/81 Pulse Oximetry 93 96 08/27/19 19:00 08/27/19 19:30 Temperature Pulse Rate 96 H 91 H Respiratory Rate Blood Pressure 137/79 128/79 Pulse Oximetry 93 92 MDM - Nausea/Vomiting/Diarrhea <Dinorah Ulloa, ROLL THREADER OPERATOR-BC - Last Filed: 08/27/19 19:47> Lab Data Result diagrams: 08/27/19 13:12 08/27/19 13:12 Labs: Lab Results 08/27/19 08/27/19 08/27/19 Range/Units 13:12 13:12 13:12 WBC 12.6 H (4.5-11.0) X10^3/uL RBC 5.08 (4.0-5.2) X10^6/uL Hgb 15.0 (12.0-16.0) g/dL Hct 43.7 (36-46) % MCV 85.9 (80-100) fL MCH 29.4 (26-34) PG MCHC 34.3 (30-36) % RDW 13.0 (11.6-14.8) % Plt Count 148 L (150-400) X10^3/uL Neut % (Auto) 88.5 H (50-75) % Lymph % (Auto) 4.2 L (25-40) % [place] % (Auto) 6.9 (3-14) % Eos % (Auto) 0.0 L (2-4) % Baso % (Auto) 0.4 (0-2) % Neut # (Auto) 04436 H (5360-0509) /uL Lymph # (Auto) 500 L (7285-2667) /uL [place] # (Auto) 900 (0-900) /uL Eos # (Auto) 0 (0-450) /uL Baso # (Auto) 0 (0-100) /uL Sodium 136 L (137-145) mmol/L Potassium 3.9 (3.4-5.1) mmol/L Chloride 101 (98-107) mmol/L Carbon Dioxide 26 (22-32) mmol/L BUN 11 (7-17) mg/dL Creatinine 0.64 (0.52-1.04) mg/dL Estimated GFR > 60.0 (>60) mL/min BUN/Creatinine Ratio 17.2 (6-22) Glucose 116 H (70-100) mg/dL Lactate 0.9 (0.7-2.1) mmol/L Calcium 9.9 (8.4-10.2) mg/dL Magnesium (1.6-2.3) mg/dL Total Bilirubin 0.5 (0.2-1.3) mg/dL AST 28 (14-36) IU/L ALT 18 (<35) IU/L Alkaline Phosphatase 75 (38-126) U/L Total Protein 7.7 (6.3-8.2) g/dL Albumin 4.6 (3.5-5.0) g/dL Globulin 3.1 (1.7-4.1) g/dL Albumin/Globulin Ratio 1.5 (1.0-2.8) Amylase 63 (30-110) U/L Lipase 48 (23-300) U/L Stl C. cayetanensis PCR (Not Detect) Stool Rotavirus (PCR) (Not Detect) Stool Adenovirus (PCR) (Not Detect) Stool Astrovirus (PCR) (Not Detect) Stool Cryptosporidium PCR (Not Detect) Stl E.coli Shiga Tox PCR (Not Detect) St Sh/Enteroin Ecoli PCR (Not Detect) Stool E coli O157 PCR (Not Detect) Stl Enterotoxigenic E PCR (Not Detect) Stool EPEC (PCR) (Not Detect) Stl E. histolytica PCR (Not Detect) Stool Giardia Lamblia PCR (Not Detect) Stool Sapovirus (PCR) (Not Detect) Stl P. shigelloides PCR (Not Detect) St Y.enterocolitica PCR (Not Detect) Stool Vibrio (PCR) (Not Detect) Stl Vibrio cholerae PCR (Not Detect) Stl Enteroaggr Ecoli PCR (Not Detect) Stl Norovirus GI/GII PCR (Not Detect) Campylobacter (PCR) (Not Detect) C. difficile Tox (PCR) (Not Detect) Salmonella (PCR) (Not Detect) 08/27/19 08/27/19 Range/Units 13:12 16:45 WBC (4.5-11.0) X10^3/uL RBC (4.0-5.2) X10^6/uL Hgb (12.0-16.0) g/dL Hct (36-46) % MCV (80-100) fL MCH (26-34) PG MCHC (30-36) % RDW (11.6-14.8) % Plt Count (150-400) X10^3/uL Neut % (Auto) (50-75) % Lymph % (Auto) (25-40) % [place] % (Auto) (3-14) % Eos % (Auto) (2-4) % Baso % (Auto) (0-2) % Neut # (Auto) (6164-4447) /uL Lymph # (Auto) (9590-5643) /uL [place] # (Auto) (0-900) /uL Eos # (Auto) (0-450) /uL Baso # (Auto) (0-100) /uL Sodium (137-145) mmol/L Potassium (3.4-5.1) mmol/L Chloride (98-107) mmol/L Carbon Dioxide (22-32) mmol/L BUN (7-17) mg/dL Creatinine (0.52-1.04) mg/dL Estimated GFR (>60) mL/min BUN/Creatinine Ratio (6-22) Glucose (70-100) mg/dL Lactate (0.7-2.1) mmol/L Calcium (8.4-10.2) mg/dL Magnesium 1.8 (1.6-2.3) mg/dL Total Bilirubin (0.2-1.3) mg/dL AST (14-36) IU/L ALT (<35) IU/L Alkaline Phosphatase (38-126) U/L Total Protein (6.3-8.2) g/dL Albumin (3.5-5.0) g/dL Globulin (1.7-4.1) g/dL Albumin/Globulin Ratio (1.0-2.8) Amylase (30-110) U/L Lipase (23-300) U/L Stl C. cayetanensis PCR Not detected (Not Detect) Stool Rotavirus (PCR) Not detected (Not Detect) Stool Adenovirus (PCR) Not detected (Not Detect) Stool Astrovirus (PCR) Not detected (Not Detect) Stool Cryptosporidium PCR Not detected (Not Detect) Stl E.coli Shiga Tox PCR Not detected (Not Detect) St Sh/Enteroin Ecoli PCR Not detected (Not Detect) Stool E coli O157 PCR Not detected (Not Detect) Stl Enterotoxigenic E PCR Not detected (Not Detect) Stool EPEC (PCR) Not detected (Not Detect) Stl E. histolytica PCR Not detected (Not Detect) Stool Giardia Lamblia PCR Not detected (Not Detect) Stool Sapovirus (PCR) Not detected (Not Detect) Stl P. shigelloides PCR Not detected (Not Detect) St Y.enterocolitica PCR Not detected (Not Detect) Stool Vibrio (PCR) Not detected (Not Detect) Stl Vibrio cholerae PCR Not detected (Not Detect) Stl Enteroaggr Ecoli PCR Not detected (Not Detect) Stl Norovirus GI/GII PCR Not detected (Not Detect) Campylobacter (PCR) Not detected (Not Detect) C. difficile Tox (PCR) Not detected (Not Detect) Salmonella (PCR) Detected H (Not Detect) Point of Care Testing Test Results Negative Stool Occult Blood Negative Urine Dip Bedside Urine Glucose Negative Bedside Urine Bilirubin - Negative Bedside Urine Ketone + 15 Urine Specific [place] 1.025 Bedside Urine Occult Blood - Negative Bedside Urine pH 6.0 Bedside Urine Protein - Negative Bedside Urine Urobilinogen - Negative Bedside Urine Nitrite - Negative Bedside Urine Leukocytes - Negative Esterase Imaging Data CT scan - abdomen/pelvis: Radiologist's Impression: [address] [place] [id number] Scan Report Signed Patient: Savanah Marcelino [facility]#: [id number] : 1965Acct:[id number] Age/Sex: 53 / FDate of Service: 08/27/19 Loc: ED Accession Number: [id number] Procedure: CT abdomen pelvis w con Ordering Provider: Dinorah UlloaP- PROCEDURE: CT ABDOMEN PELVIS W CON INDICATIONS: abd pain, fever TECHNIQUE: After the administration of intravenous contrast, 5 mm thick sections acquired from the diaphragm to the symphysis. 5 mm coronal and sagittal reformats were acquired. For radiation dose reduction, the following was used: automated exposure control, adjustment of mA and/or kV according to patient size. COMPARISON: None. FINDINGS: Image quality: Excellent. ABDOMEN: Lung bases: Lung bases are clear. Heart size is normal. Solid organs: Liver is normal in size and enhancement. Numerous small low density liver lesions likely represent a combination of cysts and hemangiomas. The gallbladder is mildly distended with mild diffuse gallbladder wall thickening.. Biliary system is non dilated. Pancreas enhances normally. Spleen is normal in size and enhancement. Heterogeneous left adrenal mass measuring 2.9 cm suspicious for metastatic disease. Kidneys demonstrate normal size and enhancement, without hydronephrosis. Peritoneum and bowel: Circumferential thickening of the second and third portions of the duodenum. Consider duodenal lymphoma versus adenocarcinoma of the duodenum. Thickening of the wall of the entire colon, with relative sparing of the rectum. Consider C. difficile colitis. Nodes and vessels: No retroperitoneal or mesenteric adenopathy by size criteria. Aorta and inferior vena cava are normal in size. Miscellaneous: No ventral hernias. PELVIS: Genitourinary: Bladder wall thickness is normal. Miscellaneous: No inguinal hernias or adenopathy. The uterus is present. There is possibly a large exophytic fibroid off the uterus to the right measuring approximately 4.5 cm maximum diameter versus a deep pelvic metastatic lesion. Bones: No suspicious bony lesions. No vertebral body compression fractures. IMPRESSION: 1. Diffuse bowel wall thickening and edema of the colon. Consider infectious versus inflammatory colitis. 2. Diffuse circumferential thickening of the second and proximal third portion of the duodenum. Consider duodenal lymphoma or adenocarcinoma. Recommend direct endoscopic visualization. 3. A 2.9 cm heterogeneous lesion of the left adrenal may potentially represent a metastatic lesion. 4. Exophytic uterine fibroid versus metastatic lesion adjacent to the uterus. As stated above, would recommend direct visualization of the duodenum utilizing endoscopy. Additionally, consider multiphase CT for further evaluation of the left adrenal. Finally, consider pelvic ultrasound for further characterization of the potential exophytic uterine fibroid versus lesion adjacent to the uterus. Comment: Findings were discussed with HORTENSIA Saucedo, at the time of study dictation. Dictated by: Scot Lazo M.D. on 08/27/2019 at 15:08 Approved by: Scot Lazo M.D. on 08/27/2019 at 15:24 Abdominal x-ray: Radiologist's Impression: [facility] [place] [id number] XRay Report Signed Patient: Savanah Marcelino [facility]#: [id number] : 1965Acct:[id number] Age/Sex: 53 / FDate of Service: 08/27/19 Loc: ED Accession Number: [id number] Procedure: XR acute abdomen series Ordering Provider: Dinorah Ulloa PROCEDURE: XR ACUTE ABDOMEN SERIES INDICATIONS: abd pain TECHNIQUE: One view chest and two views of the abdomen were acquired. COMPARISON: None. FINDINGS: Surgical changes and devices: None. Chest: Lungs are clear. Heart size is normal. No pleural effusions. No pneumoperitoneum. Abdomen: Bowel gas pattern is normal. No suspicious calcifications. Visualized solid organ contours appear normal. Bones: No suspicious bony lesions. IMPRESSION: No evidence acute pulmonary process. No evidence of acute abdominal process. Dictated by: Scot Lazo M.D. on 08/27/2019 at 14:00 Approved by: Scot Lazo M.D. on 08/27/2019 at 14:00 [facility] Narrative Medical decision making narrative: The patient is a 53-year-old female who pr esents with chief complaint of multiple watery stools and abdominal cramping as well as low-grade fevers. Her lab work is grossly normal, slight leukocytosis noted. Given her exam fever leukocytosis we did get a abdomen pelvis x-ray, which is concerning for infectious versus inflammatory colitis. She also has thickening of the 2nd proximal 3rd portion of duodenum, a heterogeneous left adrenal mass, as well as a uterine fibroid versus metastatic lesion. Given the patient's multiple concerning findings on her CT scan, I spoke with Dr. Resendiz to help arrange follow-up for the patient so that she can be scoped. Dr. Resendiz kindly agreed to follow up with the patient for a scope. The patient's GI panel came back with salmonella. As per up-to-date recommendations given that she has had multiple watery stools high fevers, we will cover her with antibiotics as per up-to-date recommendations. Levaquin was selected as per up-to-date recommendations. Patient tolerated p.o. antibiotics in the emergency department. The patient is nauseous so she was also given Zofran. I discussed at length importance of following up with surgery to help evaluate for any metastatic disease. Discussed coming back to the emergency department for any acute concerns such as inability keep down fluids, as well as the importance of following up with primary care provider. Patient has been have no questions or concerns upon discharge and state understanding of return precautions as well as follow-up care. <Tacho Munguia MD - Last Filed: 08/28/19 07:26> Lab Data Labs: Lab Results 08/27/19 08/27/19 08/27/19 Range/Units 13:12 13:12 13:12 WBC 12.6 H (4.5-11.0) X10^3/uL RBC 5.08 (4.0-5.2) X10^6/uL Hgb 15.0 (12.0-16.0) g/dL Hct 43.7 (36-46) % MCV 85.9 (80-100) fL MCH 29.4 (26-34) PG MCHC 34.3 (30-36) % RDW 13.0 (11.6-14.8) % Plt Count 148 L (150-400) X10^3/uL Neut % (Auto) 88.5 H (50-75) % Lymph % (Auto) 4.2 L (25-40) % [place] % (Auto) 6.9 (3-14) % Eos % (Auto) 0.0 L (2-4) % Baso % (Auto) 0.4 (0-2) % Neut # (Auto) 22874 H (1435-8591) /uL Lymph # (Auto) 500 L (6942-1377) /uL [place] # (Auto) 900 (0-900) /uL Eos # (Auto) 0 (0-450) /uL Baso # (Auto) 0 (0-100) /uL Sodium 136 L (137-145) mmol/L Potassium 3.9 (3.4-5.1) mmol/L Chloride 101 (98-107) mmol/L Carbon Dioxide 26 (22-32) mmol/L BUN 11 (7-17) mg/dL Creatinine 0.64 (0.52-1.04) mg/dL Estimated GFR > 60.0 (>60) mL/min BUN/Creatinine Ratio 17.2 (6-22) Glucose 116 H (70-100) mg/dL Lactate 0.9 (0.7-2.1) mmol/L Calcium 9.9 (8.4-10.2) mg/dL Magnesium (1.6-2.3) mg/dL Total Bilirubin 0.5 (0.2-1.3) mg/dL AST 28 (14-36) IU/L ALT 18 (<35) IU/L Alkaline Phosphatase 75 (38-126) U/L Total Protein 7.7 (6.3-8.2) g/dL Albumin 4.6 (3.5-5.0) g/dL Globulin 3.1 (1.7-4.1) g/dL Albumin/Globulin Ratio 1.5 (1.0-2.8) Amylase 63 (30-110) U/L Lipase 48 (23-300) U/L Stl C. cayetanensis PCR (Not Detect) Stool Rotavirus (PCR) (Not Detect) Stool Adenovirus (PCR) (Not Detect) Stool Astrovirus (PCR) (Not Detect) Stool Cryptosporidium PCR (Not Detect) Stl E.coli Shiga Tox PCR (Not Detect) St Sh/Enteroin Ecoli PCR (Not Detect) Stool E coli O157 PCR (Not Detect) Stl Enterotoxigenic E PCR (Not Detect) Stool EPEC (PCR) (Not Detect) Stl E. histolytica PCR (Not Detect) Stool Giardia Lamblia PCR (Not Detect) Stool Sapovirus (PCR) (Not Detect) Stl P. shigelloides PCR (Not Detect) St Y.enterocolitica PCR (Not Detect) Stool Vibrio (PCR) (Not Detect) Stl Vibrio cholerae PCR (Not Detect) Stl Enteroaggr Ecoli PCR (Not Detect) Stl Norovirus GI/GII PCR (Not Detect) Campylobacter (PCR) (Not Detect) C. difficile Tox (PCR) (Not Detect) Salmonella (PCR) (Not Detect) 08/27/19 08/27/19 Range/Units 13:12 16:45 WBC (4.5-11.0) X10^3/uL RBC (4.0-5.2) X10^6/uL Hgb (12.0-16.0) g/dL Hct (36-46) % MCV (80-100) fL MCH (26-34) PG MCHC (30-36) % RDW (11.6-14.8) % Plt Count (150-400) X10^3/uL Neut % (Auto) (50-75) % Lymph % (Auto) (25-40) % [place] % (Auto) (3-14) % Eos % (Auto) (2-4) % Baso % (Auto) (0-2) % Neut # (Auto) (8577-2323) /uL Lymph # (Auto) (8091-2917) /uL [place] # (Auto) (0-900) /uL Eos # (Auto) (0-450) /uL Baso # (Auto) (0-100) /uL Sodium (137-145) mmol/L Potassium (3.4-5.1) mmol/L Chloride (98-107) mmol/L Carbon Dioxide (22-32) mmol/L BUN (7-17) mg/dL Creatinine (0.52-1.04) mg/dL Estimated GFR (>60) mL/min BUN/Creatinine Ratio (6-22) Glucose (70-100) mg/dL Lactate (0.7-2.1) mmol/L Calcium (8.4-10.2) mg/dL Magnesium 1.8 (1.6-2.3) mg/dL Total Bilirubin (0.2-1.3) mg/dL AST (14-36) IU/L ALT (<35) IU/L Alkaline Phosphatase (38-126) U/L Total Protein (6.3-8.2) g/dL Albumin (3.5-5.0) g/dL Globulin (1.7-4.1) g/dL Albumin/Globulin Ratio (1.0-2.8) Amylase (30-110) U/L Lipase (23-300) U/L Stl C. cayetanensis PCR Not detected (Not Detect) Stool Rotavirus (PCR) Not detected (Not Detect) Stool Adenovirus (PCR) Not detected (Not Detect) Stool Astrovirus (PCR) Not detected (Not Detect) Stool Cryptosporidium PCR Not detected (Not Detect) Stl E.coli Shiga Tox PCR Not detected (Not Detect) St Sh/Enteroin Ecoli PCR Not detected (Not Detect) Stool E coli O157 PCR Not detected (Not Detect) Stl Enterotoxigenic E PCR Not detected (Not Detect) Stool EPEC (PCR) Not detected (Not Detect) Stl E. histolytica PCR Not detected (Not Detect) Stool Giardia Lamblia PCR Not detected (Not Detect) Stool Sapovirus (PCR) Not detected (Not Detect) Stl P. shigelloides PCR Not detected (Not Detect) St Y.enterocolitica PCR Not detected (Not Detect) Stool Vibrio (PCR) Not detected (Not Detect) Stl Vibrio cholerae PCR Not detected (Not Detect) Stl Enteroaggr Ecoli PCR Not detected (Not Detect) Stl Norovirus GI/GII PCR Not detected (Not Detect) Campylobacter (PCR) Not detected (Not Detect) C. difficile Tox (PCR) Not detected (Not Detect) Salmonella (PCR) Detected H (Not Detect) Point of Care Testing Test Results Negative Stool Occult Blood Negative Urine Dip Bedside Urine Glucose Negative Bedside Urine Bilirubin - Negative Bedside Urine Ketone + 15 Urine Specific [place] 1.025 Bedside Urine Occult Blood - Negative Bedside Urine pH 6.0 Bedside Urine Protein - Negative Bedside Urine Urobilinogen - Negative Bedside Urine Nitrite - Negative Bedside Urine Leukocytes - Negative Esterase Discharge Plan Departure Patient Disposition: Home Clinical Impression: Salmonella, Lesion of adrenal gland, Duodenal anomaly, Mass of uterus Discharge Date/Time: 08/27/19 19:51 Instructions: DI for Salmonellosis Activity Restrictions/Additional Instructions: Thank you for trusting us with your care today. Today your stool tested positive for Salmonella. Given that you have fever and multiple watery stools a day, we have elected to cover you with antibiotics. I sent a prescription of Levaquin to [facility]. I also sent a prescription of nausea medicine to [facility]. Please take the antibiotic with a probiotic such as align or yogurt. This can help maintain good gut juan. As I discussed, you also had multiple concerning findings on your CT including duodenal thickening, a lesion on one of your adrenal glands, and a possible uterine mass or fibroid. These need to be investigated as they could represent a serious disease process such as cancer. I spoke with Dr. Resendiz from [facility], who is happy to follow-up with you. Please call her office on Thursday. I included contact information for [facility] as well as Dr. Resendiz specifically. Please come back to the emergency department for any acute concerns such as inability keep down fluids etcetera Please follow-up with primary care provider as well. Given you contact information [facility] health payroll human resources assistant. They can help you identify new primary care provider. Prescriptions: New ondansetron 4 mg tablet,disintegrating 4 mg PO Q6H PRN (Reason: nausea and vomiting) Qty: 14 RF: 0 levofloxacin 500 mg tablet 500 mg PO DAILY Qty: 7 RF: 0 No Action rizatriptan [[employer]] 5 mg tablet,disintegrating 5 mg PO ONCE Qty: 10 RF: 0 Acidophilus 1 cap PO QPM RF: 0 iron 1 tab PO QPM RF: 0 Referrals: [facility] [Provider Group] [facility] [Outside] Nafisa Resendiz MD [Physician] - Stand Alone Forms: Work Release Note
[2019-08-27] MEDS: ONDANSETRON 4 MG/2 ML INJ IV (13:48)
[2019-08-27] MEDS: SODIUM CHLORIDE 0.9% 1,000 ML 1000 ML IV ×2 (13:48→13:49)
[2019-08-27 13:54] LABS: Add Manual Diff / Slide Review NO; Basophils Absolute Auto 0 /uL (0-100); Basophils Percent Auto 0.4 % (0-2); Eosinophils Absolute Auto 0 /uL (0-450); Hematocrit 43.7 % (36-46); Lymphocytes Absolute Auto 500 /uL (1100-4500); Lymphocytes Percent Auto 4.2 % (25-40); Mean Corpuscular HGB Conc 34.3 % (30-36); Mean Corpuscular Hemoglobin 29.4 PG (26-34); Mean Corpuscular Volume 85.9 fL (80-100); Monocytes Absolute Auto 900 /uL (0-900); Monocytes Percent Auto 6.9 % (3-14); Neutrophils Absolute Auto 11100 /uL (1500-7000); Neutrophils Percent Auto 88.5 % (50-75); Platelet Count 148 X10^3/uL (150-400); Red Blood Cell Count 5.08 X10^6/uL (4.0-5.2); White Blood Cell Count 12.6 X10^3/uL (4.5-11.0)
[2019-08-27 14:00] LABS: Alanine Aminotransferase 18 IU/L (<35); Albumin 4.6 g/dL (3.5-5.0); Albumin Globulin Ratio 1.5 (1.0-2.8); Alkaline Phosphatase 75 U/L (38-126); Amylase 63 U/L (30-110); Aspartate Aminotransferase 28 IU/L (14-36); BUN Creatinine Ratio 17.2 (6-22); Bilirubin Total 0.5 mg/dL (0.2-1.3); Blood Urea Nitrogen 11 mg/dL (7-17); Calcium 9.9 mg/dL (8.4-10.2); Carbon Dioxide 26 mmol/L (22-32); Chloride 101 mmol/L (98-107); Estimated Glomerular Filt Rate > 60.0 mL/min (>60); Globulin 3.1 g/dL (1.7-4.1); Glucose 116 mg/dL (70-100); HEMOLYSIS < 15 (0-50); Lipase 48 U/L (23-300); Potassium 3.9 mmol/L (3.4-5.1); Sodium 136 mmol/L (137-145); Total Protein 7.7 g/dL (6.3-8.2)
[2019-08-27 14:05] LABS: Lactate (Lactic Acid) 0.9 mmol/L (0.7-2.1); Magnesium 1.8 mg/dL (1.6-2.3)
--- NOTE | 2019-08-27 15:09 | DI.CT.S_ITS ---
PROCEDURE: CT ABDOMEN PELVIS W CON INDICATIONS: abd pain, fever TECHNIQUE: After the administration of intravenous contrast, 5 mm thick sections acquired from the diaphragm to the symphysis. 5 mm coronal and sagittal reformats were acquired. For radiation dose reduction, the following was used: automated exposure control, adjustment of mA and/or kV according to patient size. COMPARISON: None. FINDINGS: Image quality: Excellent. ABDOMEN: Lung bases: Lung bases are clear. Heart size is normal. Solid organs: Liver is normal in size and enhancement. Numerous small low density liver lesions likely represent a combination of cysts and hemangiomas. The gallbladder is mildly distended with mild diffuse gallbladder wall thickening.. Biliary system is non dilated. Pancreas enhances normally. Spleen is normal in size and enhancement. Heterogeneous left adrenal mass measuring 2.9 cm suspicious for metastatic disease. Kidneys demonstrate normal size and enhancement, without hydronephrosis. Peritoneum and bowel: Circumferential thickening of the second and third portions of the duodenum. Consider duodenal lymphoma versus adenocarcinoma of the duodenum. Thickening of the wall of the entire colon, with relative sparing of the rectum. Consider C. difficile colitis. Nodes and vessels: No retroperitoneal or mesenteric adenopathy by size criteria. Aorta and inferior vena cava are normal in size. Miscellaneous: No ventral hernias. PELVIS: Genitourinary: Bladder wall thickness is normal. Miscellaneous: No inguinal hernias or adenopathy. The uterus is present. There is possibly a large exophytic fibroid off the uterus to the right measuring approximately 4.5 cm maximum diameter versus a deep pelvic metastatic lesion. Bones: No suspicious bony lesions. No vertebral body compression fractures. IMPRESSION: 1. Diffuse bowel wall thickening and edema of the colon. Consider infectious versus inflammatory colitis. 2. Diffuse circumferential thickening of the second and proximal third portion of the duodenum. Consider duodenal lymphoma or adenocarcinoma. Recommend direct endoscopic visualization. 3. A 2.9 cm heterogeneous lesion of the left adrenal may potentially represent a metastatic lesion. 4. Exophytic uterine fibroid versus metastatic lesion adjacent to the uterus. As stated above, would recommend direct visualization of the duodenum utilizing endoscopy. Additionally, consider multiphase CT for further evaluation of the left adrenal. Finally, consider pelvic ultrasound for further characterization of the potential exophytic uterine fibroid versus lesion adjacent to the uterus. Comment: Findings were discussed with HORTENSIA Saucedo, at the time of study dictation. Dictated by: Scot Lazo M.D. on 08/27/2019 at 15:08 Approved by: Scot Lazo M.D. on 08/27/2019 at 15:24
[2019-08-27] MEDS: KETOROLAC 60 MG/2 ML VIAL 30 MG IV (17:32)
[2019-08-27] MEDS: DEXAMETHASONE 10 MG/ML VIAL IV (17:32)
[2019-08-27] MEDS: SODIUM CHLORIDE 0.9% 1,000 ML 150 ML IV (17:34)
[2019-08-27] MEDS: ACETAMINOPHEN 325 MG TABLET 975 MG PO (18:10)
[2019-08-27 18:36] LABS: Adenovirus F 40/41 Not Detected (Not Detect); Astrovirus Not Detected (Not Detect); Campylobacter Not Detected (Not Detect); Clostridium difficile toxin AB Not Detected (Not Detect); Cryptosporidium Not Detected (Not Detect); Cyclospora cayetanensis Not Detected (Not Detect); Entamoeba histolytica Not Detected (Not Detect); Enteroaggregative E.coli Not Detected (Not Detect); Enteropathogenic E.coli Not Detected (Not Detect); Enterotoxigenic E.coli It/st Not Detected (Not Detect); Giardia lamblia Not Detected (Not Detect); Norovirus GI/GII Not Detected (Not Detect); Plesiomonsa shigelloides Not Detected (Not Detect); Rotavirus A Not Detected (Not Detect); Sapovirus Not Detected (Not Detect); Shiga-like toxin-prod E.coli Not Detected (Not Detect); Shigella/Enteroinvasive E.coli Not Detected (Not Detect); Vibrio Not Detected (Not Detect); Vibrio cholerae Not Detected (Not Detect); Yersinia enterocolitica Not Detected (Not Detect)
[2019-08-27] MEDS: levoFLOXacin 250 MG TABLET 500 MG PO (19:05)
[2019-08-27] MEDS: ONDANSETRON 4 MG ODT PREPACK 1 BOTTLE MISC (19:36)
[2019-08-28 06:58] LABS: Salmonella Detected (Not Detect)
== END 2019-08-27 19:51 | disposition home or self-care (01) ==
PROVIDERS: Emergency Provider Nurse Practitioner Family
DX: A02.9 Salmonella infection, unspecified (principal); E27.9 Disorder of adrenal gland, unspecified; N85.8 Other specified noninflammatory disorders of uterus; Q43.8 Other specified congenital malformations of intestine; R19.7 Diarrhea, unspecified; R10.9 Unspecified abdominal pain; R50.9 Fever, unspecified; R51 Headache
CPT/HCPCS: 74022; 74177; 80053; 81003; 81025; 82150; 82272; 83605; 83690; 83735; 85025; 87507; 96361; 96374; 96375; 99284; J1100; J1885; J2405; Q9967

== ENCOUNTER → 2019-09-07 16:00 | Outpatient (CLI) | payer SELFPAY ==
--- NOTE | 2019-09-07 16:05 | DI.MRI.S_ITS ---
PROCEDURE: MR ABDOMEN WO CON INDICATIONS: Enlarged left adrenal gland on CT TECHNIQUE: Coronal HASTE, axial 2-D FLASH in- and [id number] with subtractions from the hepatic dome to the iliac crests. COMPARISON: [facility], CT, CT ABDOMEN PELVIS W CON, 08/27/2019, 15:33. FINDINGS: Image quality: Excellent. Adrenal glands: The right adrenal gland appears normal. The left adrenal gland is enlarged measuring up to 2.5 x 2.8 cm in maximal dimension. The left adrenal gland does not show expected uniform reduction of signal intensity on the [id number] gradient T1 imaging, indicating absence of homogeneous adrenal adenoma as the underlying cause. Other solid organs: Liver is normal in overall size and again is seen to contain several scattered simple appearing cysts.. Gallbladder appears normal . Biliary system is non dilated. Pancreas is normal in morphology. Spleen is normal in size. Both kidneys are normal in size, without hydronephrosis. Nodes and vessels: No retroperitoneal or mesenteric adenopathy by size criteria. Aorta and inferior vena cava are normal in size. Bowel and peritoneum: Unenhanced bowel loops are normal in caliber. No free fluid. Lung bases: No basal pleural effusions. Heart size is normal. Bones and soft tissues: No ventral hernias. Bone marrow is of normal overall signal. IMPRESSION: The left adrenal gland is enlarged at 2.8 cm in maximal dimension and demonstrates MR imaging characteristics that do not allow diagnosis of benign adrenal adenoma. Rather, etiology is indeterminate and neoplasm remains a potential cause. Consideration of adrenalectomy is anticipated. Dictated by: Dre Abbasi M.D. on 09/08/2019 at 11:15 Approved by: Dre Abbasi M.D. on 09/08/2019 at 11:20
== END ==
PROVIDERS: PCP Registered Nurse; Referring Provider Surgery; Visit Provider Surgery
DX: E27.8 Other specified disorders of adrenal gland (principal); R93.3 Abnormal findings on diagnostic imaging of other parts of digestive tract; K76.89 Other specified diseases of liver
CPT/HCPCS: 74181

== ENCOUNTER → 2019-09-09 07:12 | Outpatient (CLI) | payer SELFPAY ==
[2019-09-09 08:28] LABS: Add Manual Diff / Slide Review NO; Basophils Absolute Auto 100 /uL (0-100); Basophils Percent Auto 0.9 % (0-2); Eosinophils Absolute Auto 200 /uL (0-450); Eosinophils Percent Auto 2.5 % (2-4); Hematocrit 38.9 % (36-46); Hemoglobin 13.4 g/dL (12.0-16.0); Lymphocytes Absolute Auto 2400 /uL (1100-4500); Mean Corpuscular HGB Conc 34.5 % (30-36); Mean Corpuscular Hemoglobin 29.6 PG (26-34); Mean Corpuscular Volume 85.7 fL (80-100); Monocytes Absolute Auto 500 /uL (0-900); Monocytes Percent Auto 7.1 % (3-14); Neutrophils Absolute Auto 4000 /uL (1500-7000); Neutrophils Percent Auto 56.5 % (50-75); Platelet Count 214 X10^3/uL (150-400); Red Blood Cell Count 4.54 X10^6/uL (4.0-5.2); White Blood Cell Count 7.1 X10^3/uL (4.5-11.0)
[2019-09-09 08:40] LABS: Alanine Aminotransferase 21 IU/L (<35); Albumin 4.1 g/dL (3.5-5.0); Albumin Globulin Ratio 1.8 (1.0-2.8); Alkaline Phosphatase 57 U/L (38-126); Aspartate Aminotransferase 27 IU/L (14-36); BUN Creatinine Ratio 16.9 (6-22); Bilirubin Total 0.5 mg/dL (0.2-1.3); Blood Urea Nitrogen 11 mg/dL (7-17); Calcium 9.9 mg/dL (8.4-10.2); Carbon Dioxide 29 mmol/L (22-32); Chloride 105 mmol/L (98-107); Cholesterol 272 mg/dL (140-199); Estimated Glomerular Filt Rate > 60.0 mL/min (>60); Globulin 2.3 g/dL (1.7-4.1); Glucose 83 mg/dL (70-100); HDL Cholesterol 59 mg/dL (40-60); HEMOLYSIS < 15 (0-50); LDL Cholesterol Calculated 197 mg/dL (<100); Potassium 4.4 mmol/L (3.4-5.1); Sodium 139 mmol/L (137-145); Total Protein 6.4 g/dL (6.3-8.2); Triglycerides 82 mg/dL (35-150)
== END ==
PROVIDERS: PCP Registered Nurse; Referring Provider Registered Nurse; Visit Provider Registered Nurse
DX: D64.9 Anemia, unspecified (principal); E78.5 Hyperlipidemia, unspecified
CPT/HCPCS: 36415; 80053; 80061; 85025

== ENCOUNTER → 2019-11-22 08:25 | Outpatient (CLI) | payer OTHER, SELFPAY ==
[2019-11-23 09:34] LABS: COVID19 Sendout Not Detected (Not Detect)
== END ==
PROVIDERS: PCP Registered Nurse; Visit Provider Physician Assistant
DX: Z11.59 Encounter for screening for other viral diseases (principal)
CPT/HCPCS: 87635

== ENCOUNTER 2019-11-25 06:38 | Day surgery (SDC) | payer OTHER, SELFPAY ==
[2019-11-25] VITALS (13 sets, daily range): BP systolic 115–142; BP diastolic 67–90; PULSE 46–75; RESP 10–17; TEMP 36.1–37; O2SAT 94–99; BMI 28.7
--- NOTE | 2019-11-25 | PATH_ITS ---
[facility] Accession Number: [id number] . 01 Material submitted: . PART A: duodenum - DUODENUM PART B: esophagus - DISTAL ESOPHAGUS AT 35CM PART C: colon - RANDOM COLON . 02 Diagnosis: A. Duodenum, Biopsy: Small bowel mucosa with no diagnostic abnormality. Negative for active inflammation, features of sprue, dysplasia and malignancy. . B. Distal Esophgus, 35 cm, Biopsy: Squamocolumnar junctional mucosa with no diagnostic abnormality. Negative for intestinal metaplasia. Negative for dysplasia and malignancy. . C. Random Colon, Biopsies: Colonic mucosa with no diagnostic abnormality. Negative for active, chronic, and microscopic colitis. Negative for dysplasia and malignancy. . [facility] 11/28/2019 1408 Local . 02 Electronically signed: . Courtney Davila MD, Pathologist NPI- [id number] . 01 Gross description: . A. The specimen is received in formalin, labeled duodenum, and consists of a 0.2 x 0.2 x 0.2 cm, arciniega-pink fragment of soft tissue which is entirely submitted in cassette A1. B. The specimen is received in formalin, labeled distal esophagus 35 cm, and consists of two arciniega fragments of soft tissue measuring 0.2 x 0.2 x 0.2 cm in aggregate. The specimen is entirely submitted in cassette B1. C. The specimen is received in formalin, labeled random, and consists of multiple arciniega fragments of soft tissue measuring 1.0 x 0.5 x 0.2 cm in aggregate. The specimen is entirely submitted in cassette C1. ([id number]) /FRR 11/26/2019 1930 Local . 02 Pathologist provided ICD-10: K31.9 . 02 CPT . 919144, 875845, [id number] Performed at: 01 [facility] [address] [place] [address], [place], [place] [id number] MD Oscar Astudillo MD Phone: [phone] Performed at: 02 [facility] [address] [place], [place] [id number] MD Courtney Davila MD Phone: [phone]
[2019-11-25] MEDS: SODIUM CHLORIDE 0.9% 1,000 ML 200 ML IV ×2 (07:29→09:55)
--- NOTE | 2019-11-25 07:38 | PM.HP.1 ---
History of Present Illness History of Present Illness Date Patient Seen: 11/25/19 Time Patient Seen: 07:38 Chief complaint: SDC Narrative: This is a 54-year-old woman who went into the ER 3 months ago for intractable diarrhea, and abdominal pain. She had a CT scan which showed duodenal thickening, colon thickening, and 2.9 cm adrenal mass. Based on stool study she was diagnosed with salmonella. She was managed at home with hydration and rest. She is here for follow-up, as endoscopy was recommended based on the CT scan findings. She is feeling back to normal. ROS: Thirteen system review is otherwise negative other than as mentioned below and in HPI. PE: GENERAL: Well groomed and cooperative. Appears stated age. Answers questions promptly and appropriately. Vital signs noted. HENT: Normocephalic, atraumatic. Hearing intact. EYES: Conjunctiva pink, sclera white, no periorbital swelling. CARDIOVASCULAR: Regular rate. No pedal edema. RESPIRATORY: Non-tachypneic, breathing comfortably on room air. GASTROINTESTINAL: Abdomen soft and non-distended MUSCULOSKELETAL: Equal tone and mass bilaterally. SKIN: Warm, dry, soft, appropriate color for ethnicity. No other lesions, rashes, or wounds. NEURO: Alert and Oriented X 3. No gross sensory deficits, or cognitive issues. PSYCH: Appropriate affect and mood. Patient History Medical History Acute infective gastroenteritis (Acute) Allergies (Chronic) Anemia (Chronic) Headache (Chronic) Migraine (Chronic) Ovarian cyst (Chronic) Right ankle sprain (Acute) Vertigo (Chronic) Surgical History Anesthesia (Resolved) History of ankle surgery (Resolved ~2007) History of third molar tooth extraction No pertinent past surgical history (Acute) Status post dilation and curettage (~2013) Family & Social History Family History Father Hypertension Mother Age: 73 Hypertension High cholesterol Grandfather Stroke Grandmother Broken hip Social History: household members spouse Tobacco & Substance use: Smoking Status Former smoker alcohol intake never alcohol intake frequency 0-2 drinks per day Substance Use Type does not use Meds Home Medications and Allergies Home Medications Medication Instructions Recorded Confirmed Type Lactobacillus acidophilus 9 mg PO DAILY 08/29/19 10/02/20 History [Acidophilus] ferrous sulfate [iron] 650 mg PO BEDTIME 10/21/18 11/25/19 History Allergies Allergy/AdvReac Type Severity Reaction Status Date / Time amoxicillin [From Augmentin] Allergy Severe Feels Verified 11/25/19 07:10 like my whole body is bruised clavulanic acid Allergy Severe Feels Verified 11/25/19 07:10 [From Augmentin] like my whole body is bruised hydrocodone [From VICODIN] Allergy Unknown VOMITING Verified 11/25/19 07:10 prochlorperazine Allergy Unknown Seizure Verified 11/25/19 07:10 [PROCHLORPERAZINE] Opioids - Morphine Analogues AdvReac Mild headaches Verified 11/25/19 07:10 [OPIOIDS - MORPHINE ANALOGUES] Exam Vital Signs (past 8 hours): - 11/25/19 07:25 Temperature 97.9 F Pulse Rate 70 Respiratory Rate 17 Blood Pressure 132/90 Pulse Oximetry 98 Oxygen Delivery Method Room Air Assessment & Plan Assessment and plan (1) Abnormal CT scan, gastrointestinal tract: Status: Acute (2) Adrenal incidentaloma: Status: Acute Assessment & Plan narrative: Risks and benefits of EGD and screening colonoscopy and possible polypectomy were discussed with the patient including risk of bleeding, perforation, need for additional procedures, risks of anesthesia. The patient desires to proceed with the colonoscopy procedure. COVID-19 COVID-19 status: Negative Result date/Date tested (Pos, Neg/Pending): 11/22/19 Time Spent With Patient Time with patient: 15-24 minutes Quality VTE Deep Vein Thrombosis/Pulmonary Embolism Present on Admission: No
--- NOTE | 2019-11-25 07:41 | PM.OP.ENDO ---
Operative Date/Time/Diagnoses Date of procedure: 11/25/19 Time of procedure: 07:41 Pre-op diagnosis: Duodenal thickening, colon thickening on CT scan Procedure & Clinicians Study performed: Esophagogastroduodenoscopy Biopsies of duodenum and distal esophagus Colonoscopy Random biopsies of colonic mucosa Procedural sedation performed by the endoscopist Indications: Duodenal thickening, colon thickening CT scan suspicious for lymphoma and colitis Surgeon: Nafisa Resendiz Procedure Notes SCOAP/Timeout: Performed Procedure in detail: The patient was brought to the room and placed in left lateral decubitus position with all bony prominences padded. A bite block was positioned in the patient's mouth to protect the lips, teeth, and tongue for the procedure. A time-out was performed and then the patient was given procedural sedation starting with 2 mg of Versed and 100 mcg of fentanyl. Total of 4 Versed was given for the upper endoscopy. Vitals were monitored throughout the procedure and remained stable. Once adequately sedated, the procedure was begun. The lubricated gastroscope was passed through the bite block and across the tongue and into the esophagus without incident. A tubular view of the esophagus was maintained as the scope was advanced through the esophagus and into the stomach. The scope was advanced through the stomach and to the pylorus. The scope was gently popped through the pylorus and into the duodenal bulb. The scope was flexed and advanced into the second and third portions of the duodenum. The duodenum and duodenal bulb appeared normal. Biopsies were taken here to rule out any abnormality given the CT scan findings. The scope was withdrawn into the stomach. The stomach appeared normal. The scope was retroflexed and the gastric cardia was examined. Moderate-sized hiatal hernia was seen, Hill grade 3-4. The scope was then straightened, and withdrawn into the esophagus. The Z-line appeared normal at 35 cm. The distal esophagus appeared normal. Biopsies were taken. The scope was then withdrawn through the esophagus with a tubular view. The scope was then withdrawn from the patient this portion the procedure was concluded. A rectal exam was performed revealing no abnormalities. An additional 1 mg of Versed and 50 micro g of fentanyl were given during the colonoscopy procedure. The colonoscope was then introduced to the rectum and advanced to the cecum in the usual fashion. The cecum was identified by the appendiceal orifice, the mucosal tri-fold, and the ileocecal valve. The scope was then retracted while rotating side to side and examining each mucosal fold. The colonic mucosa looked normal throughout. Random biopsies were taken due to the CT scan findings to rule out microscopic colitis. The patient did have some diverticulosis in the descending and sigmoid colon. At the conclusion of the procedure retroflexion was performed and small grade 1-2 internal hemorrhoids without stigmata of bleeding were seen. The scope was then withdrawn from the rectum the procedure was concluded. The patient tolerated the procedure well and was transferred to the PACU in stable condition. A total of 5 mg of Versed and 150 micro g of fentanyl were given for the entire procedure including the upper and lower endoscopy. Scope withdrawal time: 8 Sedation minutes: 34 Findings: diverticulosis, hiatal hernia and internal hemorrhoids Specimen(s): other (Random biopsies of colon, biopsies of duodenal mucosa, biopsies of distal esophagus) Complications: none Impression: Other than some diverticulosis and a hiatal hernia follow-up was found to be normal Post-procedure Recommendations: Colonscopy in 10 years and Other recommendation (Follow-up in the office regarding biopsy results, and adrenal incidentaloma) Follow up: weeks (Two weeks) Disposition: PACU
[2019-11-25] MEDS: LIDOCAINE 4% SOLN 50 ML 20 ML TOP (07:47)
[2019-11-25] MEDS: fentaNYL 250 MCG/5 ML INJ IV (07:48)
[2019-11-25] MEDS: MIDAZOLAM 5 MG/5 ML VIAL IV (07:48)
[2019-11-25] MEDS: ONDANSETRON 4 MG/2 ML INJ IV ×2 (08:01→09:13)
--- NOTE | 2019-11-25 09:15 | SUR.PHASEII ---
Report received. Patient pale, c/o nausea. Queaze provided but declined by patient. Dr. Resendiz notified, Zofran ordered and given. VS stable, hr 49-50s. IV patent
--- NOTE | 2019-11-25 09:59 | SUR.PHASEII ---
Dr. Resendiz at bedside. Patient c/o nausea, dizziness. Denied pain. HR 40s, BP stable. IV fluids ordered and restarted. Call light within reach. Spouse present.
--- NOTE | 2019-11-25 12:34 | SUR.PHASEII ---
Patient discharged in stable condition home with . Patient states that nausea completely relieved. All belongings returned to patient. VSS.
--- NOTE | 2019-11-25 12:51 | SUR.PHASEII ---
Addendum: 1125 Patient denied pain or nausea. C/O weakness. Abd soft. VS stable. PO intake provided. IV patent.
== END 2019-11-25 12:35 | disposition home or self-care (01) ==
PROVIDERS: PCP Registered Nurse; Referring Provider Registered Nurse; Visit Provider Surgery
PROC: 0DJ08ZZ Inspection of Upper Intestinal Tract, Via Natural or Artificial Opening Endoscopic (ICD-10-PCS; CPT 43235; principal; 2019-11-25 07:45)
PROC: 0DJD8ZZ Inspection of Lower Intestinal Tract, Via Natural or Artificial Opening Endoscopic (ICD-10-PCS; CPT 45378; 2019-11-25 07:45)
DX: R10.9 Unspecified abdominal pain (principal); R93.3 Abnormal findings on diagnostic imaging of other parts of digestive tract; E27.8 Other specified disorders of adrenal gland; K44.9 Diaphragmatic hernia without obstruction or gangrene; K64.0 First degree hemorrhoids; K57.30 Diverticulosis of large intestine without perforation or abscess without bleeding
CPT/HCPCS: 45380; 43239; 99152; 99153; J2250; J2405; J3010

== ENCOUNTER → 2019-12-15 09:10 | Outpatient (CLI) | payer OTHER, SELFPAY ==
[2019-12-16 23:30] LABS: Creatinine, 24 Urine 1015 mg/24 hr (800-1800); Creatinine,Urine 36.9 mg/dL (Not Estab.); Dopamine, Ur 24hr 187 ug/24 hr (0-510); Epinephrine, U 24hr 8 ug/24 hr (0-20); Norepinephrine Ur 24hr 52 ug/24 hr (0-135)
[2019-12-20 01:06] LABS: Normetanephrine Total 996 ug/24 hr (131-612); Urine, Metanephrine 164 ug/L (Undefined); Urine, Normetanephrine 362 ug/L (Undefined)
== END ==
PROVIDERS: PCP Registered Nurse; Referring Provider Surgery; Visit Provider Surgery
DX: E27.8 Other specified disorders of adrenal gland (principal)
CPT/HCPCS: 82384; 83835

== ENCOUNTER → 2019-12-28 08:31 | Outpatient (CLI) | payer OTHER, SELFPAY ==
[2019-12-28 10:21] LABS: Cholesterol 262 mg/dL (140-199); HDL Cholesterol 65 mg/dL (40-60); LDL Cholesterol Calculated 183 mg/dL (<100); Triglycerides 70 mg/dL (35-150)
[2019-12-29 07:04] LABS: Dehydroepiandrosterone Sulfate 60.7 ug/dL (41.2-243.7)
[2019-12-31 00:26] LABS: Metanephrine,Plasma 128.2 pg/mL (0.0-88.0)
[2020-01-05 18:38] LABS: Aldosterone/Renin Activity Rat 24.5 (0.0-30.0); Plama Renin, LC/MS/MS 0.609 ng/mL/hr (0.167-5.380)
== END ==
PROVIDERS: PCP Registered Nurse; Referring Provider Surgery; Visit Provider Surgery
DX: E78.5 Hyperlipidemia, unspecified (principal); E27.8 Other specified disorders of adrenal gland
CPT/HCPCS: 36415; 80061; 82088; 82627; 83835; 84244

== ENCOUNTER 2020-05-13 14:08 | Emergency (ER) | payer OTHER, SELFPAY ==
[2020-05-13 14:15] VITALS: BP 168/99; PULSE 88; RESP 22; TEMP 36.3; O2SAT 98
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
[2020-05-13] MEDS: ACETAMINOPHEN 325 MG TABLET 650 MG PO (14:43)
[2020-05-13] MEDS: IBUPROFEN 400 MG TABLET PO (14:43)
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
[2020-05-13 16:10] VITALS: BP 142/89; PULSE 62; RESP 16; O2SAT 99
== END 2020-05-13 16:10 | disposition home or self-care (01) ==
PROVIDERS: Emergency Provider Nurse Practitioner Family; PCP Registered Nurse
DX: M54.6 Pain in thoracic spine (principal); M54.2 Cervicalgia; V89.2XXA Person injured in unspecified motor-vehicle accident, traffic, initial encounter
CPT/HCPCS: 71046; 99283

== ENCOUNTER → 2020-06-08 08:50 | Outpatient (CLI) | payer OTHER, SELFPAY ==
--- NOTE | 2020-06-08 08:51 | DI.RAD.S_ITS ---
PROCEDURE: XR THORACIC SPINE 2V INDICATIONS: back pain TECHNIQUE: 3 views of the thoracic spine were acquired. COMPARISON: None. FINDINGS: Vertebral body height and alignment is maintained. There is mild convex left cervical thoracic scoliosis present. No evidence of fracture or malalignment. Disc space narrowing noted in the mid thoracic spine. Atherosclerotic vascular calcification noted in the aortic arch. IMPRESSION: Degenerative disc disease and mild levoscoliosis without acute fracture or malalignment. Dictated by: Raghavendra Youssef M.D. on 06/08/2020 at 16:47 Approved by: Raghavendra Youssef M.D. on 06/08/2020 at 16:49
--- NOTE | 2020-06-08 08:51 | DI.RAD.S_ITS ---
PROCEDURE: XR CERVICAL SPINE 2V OR 3V INDICATIONS: neck pain/injury TECHNIQUE: 3 view(s) of the cervical spine were acquired. COMPARISON: None. FINDINGS: Bones: No fractures or dislocations to the T1 level. The lateral masses of C1 appear intact on the odontoid view. No suspicious bony lesions. Disc space narrowing and facet arthropathy noted in the mid cervical spine Soft tissues: No prevertebral soft tissue swelling. Reversal of the normal cervical lordosis may be related to muscle spasm. IMPRESSION: Mid degenerative disc disease and arthropathy is associated with reversal normal cervical lordosis, may be related to muscle spasm Dictated by: Raghavendra Youssef M.D. on 06/08/2020 at 16:35 Approved by: Raghavendra Youssef M.D. on 06/08/2020 at 16:44
--- NOTE | 2020-06-08 08:51 | DI.RAD.S_ITS ---
PROCEDURE: XR LUMBAR SPINE 2-3V INDICATIONS: back pain TECHNIQUE: 3 views of the lumbar spine were acquired. COMPARISON: [facility], , L-SPINE 2-3 VIEWS, 08/21/2014, 15:04. FINDINGS: Bones: Vertebral body height and alignment is maintained. There is disc space narrowing and facet arthropathy noted at L3-4, L4-5 and L5-S1, similar to the prior exam. Soft tissues: Overlying bowel gas pattern is normal. No suspicious soft tissue calcifications. IMPRESSION: Multilevel degenerative disc disease and arthropathy in the lower lumbar spine, similar to the prior exam Dictated by: Raghavendra Youssef M.D. on 06/08/2020 at 16:44 Approved by: Raghavendra Youssef M.D. on 06/08/2020 at 16:47
== END ==
PROVIDERS: PCP Registered Nurse; Referring Provider Registered Nurse; Visit Provider Registered Nurse
DX: S19.9XXA Unspecified injury of neck, initial encounter (principal); M50.30 Other cervical disc degeneration, unspecified cervical region; M47.812 Spondylosis without myelopathy or radiculopathy, cervical region; M51.34 Other intervertebral disc degeneration, thoracic region; M51.36 Other intervertebral disc degeneration, lumbar region; M51.37 Other intervertebral disc degeneration, lumbosacral region; M47.816 Spondylosis without myelopathy or radiculopathy, lumbar region; M47.817 Spondylosis without myelopathy or radiculopathy, lumbosacral region; M41.83 Other forms of scoliosis, cervicothoracic region
CPT/HCPCS: 72040; 72070; 72100

== ENCOUNTER → 2020-10-05 17:12 | Outpatient (CLI) | payer OTHER, SELFPAY | PROVIDERS: PCP Registered Nurse; Visit Provider Physician Assistant | DX: N89.8 Other specified noninflammatory disorders of vagina (principal) | CPT/HCPCS: 87210 ==

== ENCOUNTER → 2020-11-21 09:41 | Outpatient (CLI) | payer OTHER, SELFPAY ==
--- NOTE | 2020-11-21 09:42 | DI.US.S_ITS ---
PROCEDURE: US PELVIC COMPLETE INDICATIONS: PELVIC PAIN HISTORY OF OVARIAN CYSTS TECHNIQUE: Real-time scanning was performed of the pelvic organs, with image documentation. Additional endovaginal scanning was necessary due to incomplete visualization of the adnexal and endometrial structures by transabdominal scanning. COMPARISON: [facility], [place], PELVIC COMPLETE, 11/08/2007, 16:06. [facility], [place], PELVIC COMPLETE, 06/16/2012, 14:16. [facility], , PELVIC COMPLETE, 11/14/2014, 10:18. FINDINGS: Uterus: Uterus is normal in size at 7.6 x 4.4 x 4.4 cm. The endometrium measures 5.1 mm in combined thickness. Ovaries: Right ovary measures 2.7 x 1.7 x 1.0 centimeters. Left ovary measures 2.4 x 1.2 x 1.2 centimeters. Ovaries are sonographically normal. Doppler evaluation demonstrates normal vascular flow in the ovaries. Other: No pathologic free abdominal or pelvic fluid. IMPRESSION: No sonographic abnormality identified in the pelvis. Dictated by: Alyssia Le MD, PhD on 11/21/2020 at 11:05 Approved by: Alyssia Le MD, PhD on 11/21/2020 at 11:08
== END ==
PROVIDERS: PCP Registered Nurse; Referring Provider Registered Nurse; Visit Provider Registered Nurse
DX: R10.2 Pelvic and perineal pain (principal); N83.209 Unspecified ovarian cyst, unspecified side
CPT/HCPCS: 76830; 76856

== ENCOUNTER 2022-08-01 11:58 | Emergency (ER) | payer OTHER, SELFPAY ==
[2022-08-01] VITALS (8 sets, daily range): BP systolic 144–166; BP diastolic 85–103; PULSE 57–72; RESP 14–19; TEMP 36.7; O2SAT 95–98; BMI 30.2
[2022-08-01 12:29] LABS: Add Manual Diff / Slide Review NO; Basophils Absolute Auto 0 /uL (0-100); Basophils Percent Auto 0.6 % (0-2); Eosinophils Absolute Auto 200 /uL (0-450); Eosinophils Percent Auto 3.3 % (2-4); Hematocrit 40.9 % (36-46); Lymphocytes Absolute Auto 2100 /uL (1100-4500); Lymphocytes Percent Auto 29.9 % (25-40); Mean Corpuscular HGB Conc 34.3 % (30-36); Mean Corpuscular Volume 84.6 fL (80-100); Monocytes Absolute Auto 500 /uL (0-900); Monocytes Percent Auto 6.8 % (3-14); Neutrophils Absolute Auto 4200 /uL (1500-7000); Neutrophils Percent Auto 59.4 % (50-75); Platelet Count 201 X10^3/uL (150-400); Red Blood Cell Count 4.83 X10^6/uL (4.0-5.2); Red Cell Distribution Width 13.5 % (11.6-14.8); White Blood Cell Count 7.1 X10^3/uL (4.5-11.0)
[2022-08-01 12:46] LABS: Alanine Aminotransferase 21 IU/L (<35); Albumin 4.1 g/dL (3.5-5.0); Albumin Globulin Ratio 1.5 (1.0-2.8); Alkaline Phosphatase 71 U/L (38-126); Aspartate Aminotransferase 22 IU/L (14-36); BUN Creatinine Ratio 28.1 (6-22); Bilirubin Total 0.3 mg/dL (0.2-1.3); Blood Urea Nitrogen 18 mg/dL (7-17); Calcium 9.2 mg/dL (8.4-10.2); Carbon Dioxide 26 mmol/L (22-32); Chloride 106 mmol/L (98-107); Estimated Glomerular Filt Rate > 60 mL/min (>60); Globulin 2.7 g/dL (1.7-4.1); Glucose 108 mg/dL (70-100); HEMOLYSIS < 15 (0-50); Potassium 3.8 mmol/L (3.4-5.1); Sodium 138 mmol/L (137-145); Total Protein 6.8 g/dL (6.3-8.2)
[2022-08-01 12:50] LABS: C-Reactive Protein Quant < 0.5 mg/dL (<1.0)
[2022-08-01 12:56] LABS: Erythrocyte Sedimentation Rate 4 MM/HR (0-20)
[2022-08-01 12:57] LABS: Troponin I < 0.012 ng/mL (0.01-0.034)
--- NOTE | 2022-08-01 14:34 | ED_ITS ---
HPI - Dizziness General Chief Complaint: Dizziness Stated Complaint: dizzy/rash worsening Time Seen by Provider: 08/01/22 13:51 Source: patient Mode of arrival: Ambulatory History of Present Illness HPI Narrative: 56-year-old female former smoker without significant chronic medical history presents for evaluation of dizziness which has been present for multiple weeks. She states that she has had no trauma or injury. She denies the use of blood thinners. She has no fever or chills and denies neck pain. She is had no chest pain or shortness of breath. She states that she has dizziness that is worse when she turns her head to the right and when she stands. It lasts for 1-2 minutes and then improves. She states it is significantly better she remains still. She has had some seasonal allergies and nasal secretions. Additionally she complains of a fine, sparse rash and has seen the walk-in clinic and initially was given prednisone with minimal to no improvement and had been placed on permethrin at a follow-up visit with brief improvement. She has an appointment coming up with Dermatology to further assess Related Data Home Medications Medication Instructions Recorded Confirmed Lactobacillus acidophilus 9 mg PO DAILY 10/21/18 07/30/22 (Acidophilus capsule) ferrous sulfate 325 mg (65 mg 650 mg PO BEDTIME 10/21/18 07/30/22 iron) tablet (iron) Previous Rx's Medication Instructions Recorded lidocaine 5 % topical patch 2 patch topical DAILY PRN pain #30 10/25/20 ea azelastine 0.05 % eye drops 1 drp EYE-BOTH BID allergic 09/12/21 conjunctivitis 3 weeks #6 mL cyclobenzaprine 10 mg tablet See Rx Instructions .Route 10/31/21 .COMPLEX #10 tabs estradiol 0.01% (0.1 mg/gram) See Rx Instructions .Route 04/14/22 vaginal cream .COMPLEX #42.5 grams estradiol 10 mcg vaginal tablet See Rx Instructions .Route 04/14/22 .COMPLEX #36 tabs hydroxyzine HCl 25 mg tablet 25 mg PO BEDTIME #14 tabs 07/30/22 permethrin 5 % topical cream 1 applic topical Q14D 2 doses #60 07/30/22 grams meclizine 25 mg tablet 25 mg PO BID-TID PRN dizziness #20 08/01/22 tabs Allergies Allergy/AdvReac Type Severity Reaction Status Date / Time amoxicillin [From Augmentin] Allergy Severe Feels Verified 08/01/22 12:00 like my whole body is bruised clavulanic acid Allergy Severe Feels Verified 08/01/22 12:00 [From Augmentin] like my whole body is bruised hydrocodone [From VICODIN] Allergy Unknown VOMITING Verified 08/01/22 12:00 prochlorperazine Allergy Unknown Seizure Verified 08/01/22 12:00 [PROCHLORPERAZINE] Opioids - Morphine Analogues AdvReac Mild headaches Verified 08/01/22 12:00 [OPIOIDS - MORPHINE ANALOGUES] Review of Systems Review of Systems Narrative: GENERAL: Denies chills, fatigue, malaise, fever, sweats. HEENT:see HPI RESPIRATORY: Denies dyspnea, cough, wheezing, hemoptysis, sputum. CARDIOVASCULAR: see HPI GASTROINTESTINAL: Denies nausea, vomiting, abdominal pain, diarrhea, constipa tion, melena. : Denies dysuria, frequency, incontinence, hematuria, urinary retention. MUSCULOSKELETAL: denies weakness, joint pain, or bony pain SKIN: Denies rash, skin lesions, or other NEUROLOGIC: see HPI PSYCHIATRIC: No concerning psychosocial issues. 12 point review of systems is negative except for those stated above Patient History Medical History Acute infective gastroenteritis Allergies Anemia Back pain Back pain Cervical cancer screening Headache Migraine Neck pain Ovarian cyst Pelvic pain Right ankle sprain Screening for HPV (human papillomavirus) Vertigo Surgical History Anesthesia History of ankle surgery (~2007) History of third molar tooth extraction No pertinent past surgical history Status post dilation and curettage (~2013) Family History Father Hypertension Mother Age: 75 Hypertension High cholesterol Grandfather Stroke Grandmother Broken hip Social History household members: spouse Smoking Status: Former smoker alcohol intake: never Smoking Status: Former smoker alcohol intake frequency: holidays/special occasions only Substance Use Type: does not use Exam Narrative Exam Narrative: GENERAL: [56] year old patient appears stated age. Well-developed patient, in mild distress. GCS 15 HEAD: Atraumatic. Normocephalic. EYES: Pupils equal round and reactive. Extraocular motions intact. No scleral icterus. No injection or drainage. ENT: Nose without bleeding, purulent drainage. Throat without erythema, tonsillar hypertrophy or exudate. Airway patent. Right tympanic membrane with minimal clear effusion, no erythema, bulging or loss of landmarks. She does have a mild horizontal nystagmus when turning had right with fast twitch to the right. This lasts less than 1 minute NECK: Trachea midline. Non tender CARDIOVASCULAR: Regular rate and rhythm without murmurs, gallops, or rubs. RESPIRATORY: Clear to auscultation. Breath sounds equal bilaterally. No wheezes, rales, or rhonchi. GASTROINTESTINAL: Abdomen soft, non-tender, nondistended. EXTREMITIES: No edema or joint tenderness. BACK: Nontender without deformity or crepitance. No flank tenderness. NEURO: AOx3. SKIN: No rash or erythema of visible areas Initial Vital Signs Initial Vital Signs: Vital Signs Temperature 98.1 F 08/01/22 12:00 Pulse Rate 72 08/01/22 12:00 Respiratory Rate 15 08/01/22 12:00 Blood Pressure 158/93 H 08/01/22 12:00 Pulse Oximetry 95 08/01/22 12:00 Oxygen Delivery Method Room Air 08/01/22 12:00 Course Orders Ordered: Discontinued Medications Sodium Chloride (Normal Saline 0.9%) 500 mls @ 1,000 mls/hr IV BOLUS ONE Stop: 08/01/22 15:14 Last Infusion: 08/01/22 16:25 Dose: 0 mls/hr Documented By: Admin: 08/01/22 15:17 Dose: 1,000 mls/hr Documented By: SAFIA Meclizine HCl (Meclizine Hcl 12.5 Mg Tablet) 50 mg PO NOW ONE Stop: 08/01/22 14:46 Last Admin: 08/01/22 15:16 Dose: 50 mg Documented By: SAFIA Vital Signs Vital signs: Vital Signs - 8 hr 08/01/22 12:00 08/01/22 13:56 08/01/22 13:57 Temperature 98.1 F Pulse Rate 72 64 Respiratory Rate 15 Blood Pressure 158/93 H 155/103 H Pulse Oximetry 95 98 Oxygen Delivery Method Room Air 08/01/22 14:00 08/01/22 14:00 Temperature Pulse Rate 60 Respiratory Rate 19 Blood Pressure 144/96 H Pulse Oximetry 98 Oxygen Delivery Method MDM - Dizziness Lab Data 08/01/22 12:18 08/01/22 12:18 Labs: Lab Results 08/01/22 08/01/22 08/01/22 Range/Units 12:18 12:18 12:18 WBC 7.1 (4.5-11.0) X10^3/uL RBC 4.83 (4.0-5.2) X10^6/uL Hgb 14.0 (12.0-16.0) g/dL Hct 40.9 (36-46) % MCV 84.6 (80-100) fL MCH 29.0 (26-34) PG MCHC 34.3 (30-36) % RDW 13.5 (11.6-14.8) % Plt Count 201 (150-400) X10^3/uL Neut % (Auto) 59.4 (50-75) % Lymph % (Auto) 29.9 (25-40) % Bleckley % (Auto) 6.8 (3-14) % Eos % (Auto) 3.3 (2-4) % Baso % (Auto) 0.6 (0-2) % Neut # (Auto) 4200 (7792-7633) /uL Lymph # (Auto) 2100 (7429-2780) /uL Bleckley # (Auto) 500 (0-900) /uL Eos # (Auto) 200 (0-450) /uL Baso # (Auto) 0 (0-100) /uL ESR 4 (0-20) MM/HR Sodium 138 (137-145) mmol/L Potassium 3.8 (3.4-5.1) mmol/L Chloride 106 (98-107) mmol/L Carbon Dioxide 26 (22-32) mmol/L BUN 18 H (7-17) mg/dL Creatinine 0.64 (0.52-1.04) mg/dL Estimated GFR > 60 (>60) mL/min BUN/Creatinine Ratio 28.1 H (6-22) Glucose 108 H (70-100) mg/dL Calcium 9.2 (8.4-10.2) mg/dL Total Bilirubin 0.3 (0.2-1.3) mg/dL AST 22 (14-36) IU/L ALT 21 (<35) IU/L Alkaline Phosphatase 71 (38-126) U/L Troponin I < 0.012 (0.01-0.034) ng/mL C-Reactive Protein (<1.0) mg/dL Total Protein 6.8 (6.3-8.2) g/dL Albumin 4.1 (3.5-5.0) g/dL Globulin 2.7 (1.7-4.1) g/dL Albumin/Globulin Ratio 1.5 (1.0-2.8) 08/01/22 Range/Units 12:18 WBC (4.5-11.0) X10^3/uL RBC (4.0-5.2) X10^6/uL Hgb (12.0-16.0) g/dL Hct (36-46) % MCV (80-100) fL MCH (26-34) PG MCHC (30-36) % RDW (11.6-14.8) % Plt Count (150-400) X10^3/uL Neut % (Auto) (50-75) % Lymph % (Auto) (25-40) % Bleckley % (Auto) (3-14) % Eos % (Auto) (2-4) % Baso % (Auto) (0-2) % Neut # (Auto) (4219-5731) /uL Lymph # (Auto) (5501-9062) /uL Bleckley # (Auto) (0-900) /uL Eos # (Auto) (0-450) /uL Baso # (Auto) (0-100) /uL ESR (0-20) MM/HR Sodium (137-145) mmol/L Potassium (3.4-5.1) mmol/L Chloride (98-107) mmol/L Carbon Dioxide (22-32) mmol/L BUN (7-17) mg/dL Creatinine (0.52-1.04) mg/dL Estimated GFR (>60) mL/min BUN/Creatinine Ratio (6-22) Glucose (70-100) mg/dL Calcium (8.4-10.2) mg/dL Total Bilirubin (0.2-1.3) mg/dL AST (14-36) IU/L ALT (<35) IU/L Alkaline Phosphatase (38-126) U/L Troponin I (0.01-0.034) ng/mL C-Reactive Protein < 0.5 (<1.0) mg/dL Total Protein (6.3-8.2) g/dL Albumin (3.5-5.0) g/dL Globulin (1.7-4.1) g/dL Albumin/Globulin Ratio (1.0-2.8) MDM Narrative Medical decision making narrative: [56] year old patient presents with dizziness and chronic rash Multiple etiologies for patient's symptoms considered including, but not limited to: [Peripheral vertigo goes due to BPPV versus labyrinthitis versus other versus stroke versus cardiac cause versus electrolyte abnormality.] Prior Charts reviewed in our EMR Primary Historian: patient Labs reviewed and interpreted by myself: No leukocytosis, left shift or signs of anemia. Electrolytes, renal function largely within normal Multiple causes of dizziness considered as noted above. Stroke and cardiac causes thought much less likely given history and physical exam. Peripheral vertigo thought most likely given reproducibility, nystagmus, tympanic membrane findings, fatigability and significant improvement with above-stated therapies Patient's symptoms improved over duration of stay with above-stated therapies. Findings and discharge diagnosis discussed with patient/family followed by verbalization of understanding Return precautions discussed with patient/family whom verbalize understanding of diagnosis and plan Discharge Plan Departure Patient Disposition: Home Clinical Impression: Peripheral vertigo Instructions: DI for Vertigo Activity Restrictions/Additional Instructions: *You have been diagnosed with [dizziness likely due to peripheral vertigo. As we discussed your history and physical exam are reassuring] *What to do: *Please continue to take your regular medications as directed. [X New medication prescriptions sent to your pharmacy: [[facility] ] [ ] New medication written as a paper prescription [ ] No new medications given *Please follow up with your primary care provider in 2-3 days, call for an appointment. Let them know you were seen in the Emergency Department and that we ask that you be seen in follow up. We will electronically transmit a record of yue martins's note if your PCP is in our system * as we discussed I have included contact information for [facility], please call Dr. Hussein at [facility] on Thursday, let them know that you were se en in the emergency department and we would like you seen in follow-up. *Return to Emergency Department if you should have any new, worsening or concerning symptoms, such as [fever greater than 101 F, shaking chills, worsening pain, persistent vomiting or other bothersome symptoms] Prescriptions: New meclizine 25 mg tablet 25 mg PO BID-TID PRN (Reason: dizziness) Qty: 20 0RF No Action azelastine 0.05 % drops 1 drp EYE-BOTH BID MDD 2 drops each eye 21 Days Qty: 6 1RF permethrin 5 % cream 1 applic topical Q14D Qty: 60 0RF Rx Instructions: apply second treatment 14 days after first treatment if rash remain hydroxyzine HCl 25 mg tablet 25 mg PO BEDTIME Qty: 14 0RF lidocaine 5 % adhesive patch,medicated 2 patch topical DAILY PRN (Reason: pain) Qty: 30 0RF Rx Instructions: leave on most painful area for up to 12 hrs cyclobenzaprine 10 mg tablet See Rx Instructions .ROUTE .COMPLEX Qty: 10 0RF Dose Instruction: take 1 tablet by mouth twice a day if needed for muscle spasm Rx Instructions: take 1 tablet by mouth twice a day if needed for muscle spasm estradiol 0.01 % (0.1 mg/gram) cream See Rx Instructions .ROUTE .COMPLEX Qty: 42.5 4RF Dose Instruction: PLACE SMALL AMOUNT ON EXTERNAL GENITALIA THREE TIMES PER WEEK Rx Instructions: PLACE SMALL AMOUNT ON EXTERNAL GENITALIA THREE TIMES PER WEEK estradiol 10 mcg tablet See Rx Instructions .ROUTE .COMPLEX Qty: 36 3RF Dose Instruction: insert 1 tablet vaginally three times a week Rx Instructions: insert 1 tablet vaginally three times a week ferrous sulfate [iron] 325 mg (65 mg iron) Tablet 650 mg PO BEDTIME Lactobacillus acidophilus [Acidophilus] Capsule 9 mg PO DAILY Referrals: Conor Hussein MD [Physician] - Miscellaneous,DoctorMD [Primary Care Provider] - Stand Alone Forms: Patient Portal/API
[2022-08-01] MEDS: MECLIZINE HCL 12.5 MG TABLET 50 MG PO (15:16)
[2022-08-01] MEDS: SODIUM CHLORIDE 0.9% 500 ML 1000 ML IV (15:17)
== END 2022-08-01 16:23 | disposition home or self-care (01) ==
PROVIDERS: Emergency Provider Emergency Medicine
DX: H81.391 Other peripheral vertigo, right ear (principal)
CPT/HCPCS: 36415; 80053; 84484; 85025; 85651; 86140; 93005; 93010; 99284

== ENCOUNTER 2023-04-02 20:20 | Emergency (ER) | payer OTHER, SELFPAY ==
[2023-04-02 20:28] VITALS: BP 184/113; PULSE 77; RESP 18; TEMP 36.8; O2SAT 97; BMI 29.8
--- NOTE | 2023-04-02 20:39 | DI.CT.S_ITS ---
PROCEDURE: CT HEAD/BRAIN WO CON INDICATIONS: Dizziness, leading to left TECHNIQUE: Noncontrast 4.5 mm thick angled axial sections acquired from the foramen magnum to the vertex, with coronal and sagittal reformats. For radiation dose reduction, the following was used: automated exposure control, adjustment of mA and/or kV according to patient size. COMPARISON: [facility], CT, CT HEAD/BRAIN WO CON, 10/21/2018, 11:20. FINDINGS: Image quality: Diagnostic. CSF spaces: Basal cisterns are patent. No extra-axial fluid collections. Ventricles are normal in size and shape. Brain: No midline shift. No intracranial masses or hemorrhage. Braun-white matter interface is normal. Skull and face: Calvarium and visualized facial bones are intact, without suspicious lesions. Sinuses: Visualized sinuses and mastoids are clear. IMPRESSION: No acute intracranial pathology. Dictated by: Kavita Rayo M.D. on 04/02/2023 at 21:32 Approved by: Kavita Rayo M.D. on 04/02/2023 at 21:35
[2023-04-02 21:05] VITALS: PULSE 70; RESP 18; O2SAT 95
--- NOTE | 2023-04-02 21:12 | ED_ITS ---
HPI - Neuro Symptoms/Deficit General Chief Complaint: Neuro Symptoms/Deficit Stated Complaint: little dizzy, unsteady on feet Time Seen by Provider: 04/02/23 20:38 Source: patient Mode of arrival: Ambulatory History of Present Illness HPI Narrative: Patient is a 57-year-old female. She states that for the past 7 days she has had persistent symptoms. She did think that earlier this week her symptoms were improving somewhat but then have returned. Is difficult for her to exactly describe symptoms. Initially she thought that it was vertigo. She has had vertigo in the past and does have meclizine at home. She took a dose of meclizine it did not improve the symptoms. She states it is not exactly a room spinning sensation but more of a lightheadedness. She states she feels like she is having some ?fog? in her head. She denies chest pain, shortness of breath, palpitations. No numbness and tingling are upper and lower extremities. There has been times when she has had to hang on to something in order to not fall. Not on blood thinners. No specific vision changes. She does have history of migraines but has not had a migraine in quite a long time. She thought maybe she was developing a migraine within the past couple days but never actually developed a headache. On Anticoagulants: No Related Data Home Medications Medication Instructions Recorded Confirmed Lactobacillus acidophilus 9 mg PO DAILY 10/21/18 07/30/22 (Acidophilus capsule) ferrous sulfate 325 mg (65 mg 650 mg PO BEDTIME 10/21/18 07/30/22 iron) tablet (iron) Previous Rx's Medication Instructions Recorded lidocaine 5 % topical patch 2 patch topical DAILY PRN pain #30 10/25/20 ea azelastine 0.05 % eye drops 1 drp EYE-BOTH BID allergic 09/12/21 conjunctivitis 3 weeks #6 mL cyclobenzaprine 10 mg tablet See Rx Instructions .Route 10/31/21 .COMPLEX #10 tabs estradiol 0.01% (0.1 mg/gram) See Rx Instructions .Route 04/14/22 vaginal cream .COMPLEX #42.5 grams estradiol 10 mcg vaginal tablet See Rx Instructions .Route 04/14/22 .COMPLEX #36 tabs hydroxyzine HCl 25 mg tablet 25 mg PO BEDTIME #14 tabs 07/30/22 permethrin 5 % topical cream 1 applic topical Q14D 2 doses #60 07/30/22 grams meclizine 25 mg tablet 25 mg PO BID-TID PRN dizziness #20 08/01/22 tabs meclizine 25 mg tablet 25 mg PO BID PRN dizziness #20 tabs 04/02/23 Allergies Allergy/AdvReac Type Severity Reaction Status Date / Time amoxicillin [From Augmentin] Allergy Severe Feels Verified 04/02/23 20:34 like my whole body is bruised clavulanic acid Allergy Severe Feels Verified 04/02/23 20:34 [From Augmentin] like my whole body is bruised hydrocodone [From VICODIN] Allergy Unknown VOMITING Verified 04/02/23 20:34 prochlorperazine Allergy Unknown Seizure Verified 04/02/23 20:34 [PROCHLORPERAZINE] Opioids - Morphine Analogues AdvReac Mild headaches Verified 04/02/23 20:34 [OPIOIDS - MORPHINE ANALOGUES] Review of Systems Review of Systems ROS Unobtainable: All systems reviewed & are unremarkable except as noted in HPI and below Hematologic/Lymphatic On Anticoagulants: No Patient History Medical History Pelvic pain Screening for HPV (human papillomavirus) Cervical cancer screening Neck pain Back pain Back pain Acute infective gastroenteritis Allergies Headache Anemia Vertigo Ovarian cyst Migraine Right ankle sprain Surgical History Anesthesia History of ankle surgery (~2007) History of third molar tooth extraction No pertinent past surgical history Status post dilation and curettage (~2013) Family History Father Hypertension Mother Age: 76 Hypertension High cholesterol Grandfather Stroke Grandmother Broken hip Social History household members: spouse Smoking Status: Former smoker alcohol intake: never Smoking Status: Former smoker alcohol intake frequency: holidays/special occasions only Substance Use Type: does not use Exam Initial Vital Signs Initial Vital Signs: Vital Signs Temperature 98.2 F 04/02/23 20:28 Pulse Rate 77 04/02/23 20:28 Respiratory Rate 18 04/02/23 20:28 Blood Pressure 184/113 H 04/02/23 20:28 Pulse Oximetry 97 04/02/23 20:28 Oxygen Delivery Method Room Air 04/02/23 20:28 Const General: cooperative, comfortable and No ill appearing HENMT Head: normal to inspection and normocephalic Eyes Pupils: PERRL Resp Effort & Inspection: normal respiratory effort Auscultation: clear to auscultation bilaterally Cardio Rate: regular rate Rhythm: regular rhythm Skin General: no rashes or lesions noted Neuro General: patient alert, patient awake, patient oriented x3 and moves all extremities Cranial Nerves: CN's II-XI intact bilaterally Cognition: normal cognition Speech: speech normal Motor: muscle tone normal throughout Sensory Exam: no sensory deficits noted Extrem General: normal to inspection and capillary refill normal Psych Appearance: grossly normal and well kempt Course Orders Ordered: ED Orders 04/02/23 20:39 CT head/brain wo con Stat EKG-12 Lead Stat 04/02/23 21:10 Complete Blood Count AUTO DIFF Stat Comprehensive Metabolic Panel Stat Lipase Stat Discontinued Medications Meclizine HCl (Meclizine Hcl 12.5 Mg Tablet) 25 mg PO NOW ONE Stop: 04/02/23 21:27 Last Admin: 04/02/23 21:31 Dose: 25 mg Documented By: NABIL Vital Signs Vital signs: Vital Signs - 8 hr 04/02/23 20:28 04/02/23 21:05 04/02/23 21:26 Temperature 98.2 F Pulse Rate 77 70 64 Respiratory Rate 18 18 22 Blood Pressure 184/113 H Pulse Oximetry 97 95 96 Oxygen Delivery Method Room Air 04/02/23 21:26 04/02/23 21:30 04/02/23 21:30 Temperature Pulse Rate 65 Respiratory Rate 12 Blood Pressure 160/100 H 149/94 H Pulse Oximetry 94 Oxygen Delivery Method 04/02/23 22:00 04/02/23 22:00 04/02/23 22:30 Temperature Pulse Rate 60 Respiratory Rate 18 Blood Pressure 134/80 114/64 Pulse Oximetry 94 Oxygen Delivery Method 04/02/23 22:30 Temperature Pulse Rate 62 Respiratory Rate 15 Blood Pressure Pulse Oximetry 94 Oxygen Delivery Method MDM - Neuro Symptoms/Deficit Lab Data Attestation: I reviewed the patient's lab results. 04/02/23 21:10 04/02/23 21:10 Labs: Lab Results 04/02/23 Range/Units 21:10 WBC 7.4 (4.5-11.0) X10^3/uL RBC 4.61 (4.0-5.2) X10^6/uL Hgb 13.4 (12.0-16.0) g/dL Hct 39.1 (36-46) % MCV 84.8 (80-100) fL MCH 29.0 (26-34) PG MCHC 34.2 (30-36) % RDW 13.8 (11.6-14.8) % Plt Count 191 (150-400) X10^3/uL Neut % (Auto) 58.5 (50-75) % Lymph % (Auto) 31.9 (25-40) % [place] % (Auto) 7.3 (3-14) % Eos % (Auto) 1.5 L (2-4) % Baso % (Auto) 0.8 (0-2) % Neut # (Auto) 4300 (7371-1005) /uL Lymph # (Auto) 2400 (9369-6144) /uL [place] # (Auto) 500 (0-900) /uL Eos # (Auto) 100 (0-450) /uL Baso # (Auto) 100 (0-100) /uL Sodium 138 (137-145) mmol/L Potassium 3.5 (3.4-5.1) mmol/L Chloride 104 (98-107) mmol/L Carbon Dioxide 26 (22-32) mmol/L BUN 22 H (7-17) mg/dL Creatinine 0.71 (0.52-1.04) mg/dL Estimated GFR > 60 (>60) mL/min BUN/Creatinine Ratio 31.0 H (6-22) Glucose 98 (70-100) mg/dL Calcium 10.2 (8.4-10.2) mg/dL Total Bilirubin 0.5 (0.2-1.3) mg/dL AST 28 (14-36) IU/L ALT 19 (<35) IU/L Alkaline Phosphatase 56 (38-126) U/L Total Protein 7.5 (6.3-8.2) g/dL Albumin 4.4 (3.5-5.0) g/dL Globulin 3.1 (1.7-4.1) g/dL Albumin/Globulin Ratio 1.4 (1.0-2.8) Lipase 78 (23-300) U/L Imaging Data CT scan - head: Radiologist's Impression: PROCEDURE: CT HEAD/BRAIN WO CON INDICATIONS: Dizziness, leading to left TECHNIQUE: Noncontrast 4.5 mm thick angled axial sections acquired from the foramen magnum to the vertex, with coronal and sagittal reformats. For radiation dose reduction, the following was used: automated exposure control, adjustment of mA and/or kV according to patient size. COMPARISON: [facility], CT, CT HEAD/BRAIN WO CON, 10/21/2018, 11:20. FINDINGS: Image quality: Diagnostic. CSF spaces: Basal cisterns are patent. No extra-axial fluid collections. Ventricles are normal in size and shape. Brain: No midline shift. No intracranial masses or hemorrhage. Braun-white matter interface is normal. Skull and face: Calvarium and visualized facial bones are intact, without suspicious lesions. Sinuses: Visualized sinuses and mastoids are clear. IMPRESSION: No acute intracranial pathology. ECG Data Attestation: I personally reviewed and interpreted this ECG as follows: Interpretation: Sinus rhythm Ventricular rate is 65 Normal axis Normal QRS Normal QTC ST T wave changes MDM Narrative Medical decision making narrative: Patient has had persistent symptoms for 7 days. There have been times when has been worse than others but she has not been symptom-free during this timeframe. Potentially some improvement with the meclizine here in the ER. Her workup is unremarkable. CT scans unremarkable. Labs unremarkable. Discussed the possibility this is an atypical migraine but she has not having a headache and it does not feel like prior migraine. She does have history of vertigo but she states this is not a specific room spinning sensation just more of a lightheadedness. She denies any specific trauma. Did consider the possibility of a CVA. She has been having persistent symptoms for 7 days so she is outside the window for tPA. Low suspicion for large vessel occlusion. Not a candidate for intervention. Blood pressure is unremarkable. No indication for admission to the hospital however she is going to require further workup and follow-up with her primary doctor. Potentially a referral to see Ear Nose and Throat/neurology/Ophthalmology. I discuss this with her. She was given return precautions and follow-up instructions. She expressed understanding and agreement. Discharge Plan Departure Patient Disposition: Home Clinical Impression: Lightheadedness Instructions: DI for Dizziness-Nonvertigo Activity Restrictions/Additional Instructions: Continue to take all of your medications as directed. Recommend that you contact your primary doctor for follow-up to discuss the indications for referral to see Ophthalmology/ear nose and throat or neurology. You can take the meclizine as directed. Return to the emergency department for new symptoms. Prescriptions: New meclizine 25 mg tablet 25 mg PO BID PRN (Reason: dizziness) Qty: 20 0RF No Action azelastine 0.05 % drops 1 drp EYE-BOTH BID MDD 2 drops each eye 21 Days Qty: 6 1RF permethrin 5 % cream 1 applic topical Q14D Qty: 60 0RF Rx Instructions: apply second treatment 14 days after first treatment if rash remain hydroxyzine HCl 25 mg tablet 25 mg PO BEDTIME Qty: 14 0RF lidocaine 5 % adhesive patch,medicated 2 patch topical DAILY PRN (Reason: pain) Qty: 30 0RF Rx Instructions: leave on most painful area for up to 12 hrs cyclobenzaprine 10 mg tablet See Rx Instructions .ROUTE .COMPLEX Qty: 10 0RF Dose Instruction: take 1 tablet by mouth twice a day if needed for muscle spasm Rx Instructions: take 1 tablet by mouth twice a day if needed for muscle spasm estradiol 0.01 % (0.1 mg/gram) cream See Rx Instructions .ROUTE .COMPLEX Qty: 42.5 4RF Dose Instruction: PLACE SMALL AMOUNT ON EXTERNAL GENITALIA THREE TIMES PER WEEK Rx Instructions: PLACE SMALL AMOUNT ON EXTERNAL GENITALIA THREE TIMES PER WEEK estradiol 10 mcg tablet See Rx Instructions .ROUTE .COMPLEX Qty: 36 3RF Dose Instruction: insert 1 tablet vaginally three times a week Rx Instructions: insert 1 tablet vaginally three times a week ferrous sulfate [iron] 325 mg (65 mg iron) Tablet 650 mg PO BEDTIME Lactobacillus acidophilus [Acidophilus] Capsule 9 mg PO DAILY meclizine 25 mg tablet 25 mg PO BID-TID PRN (Reason: dizziness) Qty: 20 0RF Stand Alone Forms: Patient Portal/API
[2023-04-02 21:23] LABS: Add Manual Diff / Slide Review NO; Basophils Absolute Auto 100 /uL (0-100); Basophils Percent Auto 0.8 % (0-2); Eosinophils Absolute Auto 100 /uL (0-450); Eosinophils Percent Auto 1.5 % (2-4); Hematocrit 39.1 % (36-46); Hemoglobin 13.4 g/dL (12.0-16.0); Lymphocytes Absolute Auto 2400 /uL (1100-4500); Lymphocytes Percent Auto 31.9 % (25-40); Mean Corpuscular HGB Conc 34.2 % (30-36); Mean Corpuscular Volume 84.8 fL (80-100); Monocytes Absolute Auto 500 /uL (0-900); Monocytes Percent Auto 7.3 % (3-14); Neutrophils Absolute Auto 4300 /uL (1500-7000); Neutrophils Percent Auto 58.5 % (50-75); Platelet Count 191 X10^3/uL (150-400); Red Blood Cell Count 4.61 X10^6/uL (4.0-5.2); Red Cell Distribution Width 13.8 % (11.6-14.8); White Blood Cell Count 7.4 X10^3/uL (4.5-11.0)
[2023-04-02 21:26] VITALS: BP 160/100; PULSE 64; RESP 22; O2SAT 96
[2023-04-02 21:30] VITALS: BP 149/94; PULSE 65; RESP 12; O2SAT 94
[2023-04-02] MEDS: MECLIZINE HCL 12.5 MG TABLET 25 MG PO (21:31)
[2023-04-02 21:36] LABS: Alanine Aminotransferase 19 IU/L (<35); Albumin 4.4 g/dL (3.5-5.0); Albumin Globulin Ratio 1.4 (1.0-2.8); Alkaline Phosphatase 56 U/L (38-126); Aspartate Aminotransferase 28 IU/L (14-36); Bilirubin Total 0.5 mg/dL (0.2-1.3); Blood Urea Nitrogen 22 mg/dL (7-17); Calcium 10.2 mg/dL (8.4-10.2); Carbon Dioxide 26 mmol/L (22-32); Chloride 104 mmol/L (98-107); Estimated Glomerular Filt Rate > 60 mL/min (>60); Globulin 3.1 g/dL (1.7-4.1); Glucose 98 mg/dL (70-100); HEMOLYSIS < 15 (0-50); Lipase 78 U/L (23-300); Potassium 3.5 mmol/L (3.4-5.1); Sodium 138 mmol/L (137-145); Total Protein 7.5 g/dL (6.3-8.2)
[2023-04-02 22:00] VITALS: BP 134/80; PULSE 60; RESP 18; O2SAT 94
[2023-04-02 22:30] VITALS: BP 114/64; PULSE 62; RESP 15; O2SAT 94
== END 2023-04-02 22:50 | disposition home or self-care (01) ==
PROVIDERS: Emergency Provider Emergency Medicine
DX: R42 Dizziness and giddiness (principal); R07.9 Chest pain, unspecified
CPT/HCPCS: 36415; 70450; 80053; 83690; 85025; 93005; 93010; 99284

== ENCOUNTER → 2024-04-16 07:44 | Outpatient (CLI) | payer OTHER, SELFPAY ==
[2024-04-16 09:35] LABS: Add Manual Diff / Slide Review NO; Basophils Absolute Auto 100 /uL (0-100); Basophils Percent Auto 1.3 % (0-2); Eosinophils Absolute Auto 100 /uL (0-450); Eosinophils Percent Auto 2.2 % (2-4); Lymphocytes Absolute Auto 2100 /uL (1100-4500); Lymphocytes Percent Auto 37.4 % (25-40); Mean Corpuscular HGB Conc 34.1 % (30-36); Mean Corpuscular Hemoglobin 29.1 PG (26-34); Mean Corpuscular Volume 85.5 fL (80-100); Monocytes Absolute Auto 400 /uL (0-900); Monocytes Percent Auto 6.9 % (3-14); Neutrophils Absolute Auto 3000 /uL (1500-7000); Neutrophils Percent Auto 52.2 % (50-75); Platelet Count 199 X10^3/uL (150-400); Red Cell Distribution Width 13.2 % (11.6-14.8); White Blood Cell Count 5.7 X10^3/uL (4.5-11.0)
[2024-04-16 09:54] LABS: BUN Creatinine Ratio 23.8 (6-22); Blood Urea Nitrogen 15 mg/dL (7-17); Calcium 9.7 mg/dL (8.4-10.2); Carbon Dioxide 27 mmol/L (22-32); Chloride 105 mmol/L (98-107); Cholesterol 320 mg/dL (140-199); Estimated Glomerular Filt Rate > 60 mL/min (>60); Glucose 88 mg/dL (70-100); HDL Cholesterol 79 mg/dL (40-60); HEMOLYSIS < 15 (0-50); LDL Cholesterol Calculated 226 mg/dL (<100); Potassium 4.5 mmol/L (3.4-5.1); Sodium 140 mmol/L (137-145); Triglycerides 76 mg/dL (35-150)
[2024-04-16 10:05] LABS: Creatinine Urine Random 99.86 mg/dL
[2024-04-16 10:11] LABS: Microalbumin Urine Random < 0.6 mg/dL (0-1.6)
[2024-04-16 10:26] LABS: TSH w/ Reflex to FT4 2.35 uIU/mL (0.47-4.68)
== END ==
LOC: LAB 07:47
PROVIDERS: PCP Nurse Practitioner Family; Referring Provider Nurse Practitioner Family; Visit Provider Nurse Practitioner Family
DX: E78.5 Hyperlipidemia, unspecified (principal); I10 Essential (primary) hypertension
CPT/HCPCS: 36415; 80048; 80061; 82043; 82570; 84443; 85025

== ENCOUNTER → 2024-11-03 06:54 | Outpatient (CLI) | payer SELFPAY ==
[2024-11-03 08:56] LABS: Alanine Aminotransferase 26 IU/L (<35); Albumin 4.3 g/dL (3.5-5.0); Albumin Globulin Ratio 1.9 (1.0-2.8); Alkaline Phosphatase 65 U/L (38-126); Blood Urea Nitrogen 16 mg/dL (7-17); Calcium 9.5 mg/dL (8.4-10.2); Carbon Dioxide 30 mmol/L (22-32); Chloride 104 mmol/L (98-107); Cholesterol 205 mg/dL (140-199); Estimated Glomerular Filt Rate > 60 mL/min (>60); Globulin 2.3 g/dL (1.7-4.1); Glucose 89 mg/dL (70-99); HDL Cholesterol 80 mg/dL (40-60); HEMOLYSIS < 15 (0-50); Potassium 4.2 mmol/L (3.4-5.1); Sodium 139 mmol/L (137-145); Total Protein 6.6 g/dL (6.3-8.2); Triglycerides 70 mg/dL (35-150)
== END ==
PROVIDERS: PCP Nurse Practitioner Family; Referring Provider Nurse Practitioner Family; Visit Provider Nurse Practitioner Family
DX: E78.5 Hyperlipidemia, unspecified (principal); I10 Essential (primary) hypertension
CPT/HCPCS: 36415; 80053; 80061

== ENCOUNTER 2025-02-13 13:58 | Emergency (ER) | payer OTHER, SELFPAY ==
--- OUTSIDE RECORDS SUMMARY | 2025-02-13 14:04 | XMS_ITS | Clinical Summary ---
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 Gastroenterology [address] [id number] Conversion, Provider, Referral from Last 3 Months Social History Tobacco Use Types Packs/Day Years Used Date Smoking Tobacco: Never Assessed Comments Unknown Sex and Gender Information Value Date Recorded Sex Assigned at Not on file Legal Sex Female 7:51 PM PDT Gender Identity Not on file Sexual Orientation Not on file Last Filed Vital Signs Vital Sign Reading Time Taken Comments Blood Pressure 159/99 10/03/2015 12:26 PM PDT Pulse 73 10/03/2015 12:26 PM PDT Temperature 36.7 C (98.1 F) 10/03/2015 12:26 PM PDT Respiratory Rate - - Oxygen Saturation 98% 10/03/2015 12: 26 PM PDT Inhaled Oxygen Concentration - - Weight 76.5 kg (168 lb 10.4 oz) 016 12:26 PM PDT Height 157.5 cm (5' 2) 10/03/2015 12:2 6 PM PDT Body Mass Index 30.85 10/03/2015 12:26 PM PDT Plan of Treatment Not on file Care Teams 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
[2025-02-13 14:35] VITALS: BP 139/94; PULSE 82; RESP 16; TEMP 36.2; O2SAT 98; BMI 29.2
--- NOTE | 2025-02-13 15:15 | ED_ITS ---
HPI - Wound/Laceration <Krishna Alarcon PA-C - Last Filed: 02/13/25 16:18> General Chief Complaint: Wound/Laceration Stated Complaint: Cut finger at work L&I Time Seen by Provider: 02/13/25 14:43 Source: patient Mode of arrival: Family Vehicle History of Present Illness HPI narrative: 59-year-old female presents to the ED status post a left pointer finger injury sustained at work today. Patient accidentally injured the left pointer finger pad when an industrial cutting machine struck her finger. Patient has a shallow 1 cm flap lesion to the tip of her left pointer finger. The wound is not bleeding currently. Neurovascularly intact. Patient is complaining of pain. Denies numbness, tingling, weakness. Tetanus status is unknown. Related Data Home Medications ?Medication ?Instructions ?Recorded ?Confirmed ferrous sulfate 325 mg (65 mg 650 mg PO BEDTIME 12/01/24 iron) tablet (iron) Previous Rx's ?Medication ?Instructions ?Recorded atorvastatin 40 mg tablet 40 mg PO DAILY #90 tabs 08/17 losartan 50 mg tablet 50 mg PO DAILY #30 tabs 11/17 Allergies Allergy/AdvReac Type Severity Reaction Status Date / Time amoxicillin (From Augmentin) AdvReac Severe Feels Verified 02/13/25 15:33 like my whole body is bruised clavulanic acid (From AdvReac Severe Feels Verified 02/13/25 15:33 Augmentin) like my whole body is bruised prochlorperazine AdvReac Severe Seizure Verified 02/13/25 15:33 (PROCHLORPERAZINE) Opioids - Morphine Analogues AdvReac Mild headaches Verified 12/01/24 14:30 (OPIOIDS - MORPHINE ANALOGUES) hydrocodone (From VICODIN) AdvReac Unknown VOMITING Verified 02/13/25 15:33 Review of Systems <Krishna Alarcon PA-C - Last Filed: 02/13/25 16:18> Constitutional Constitutional: Denies chills, Denies fatigue, Denies fever(s), Denies frequent falls, Denies lethargy and Denies weakness Eyes Eyes: Denies change in vision, Denies eye discharge, Denies irritation and Denies loss of vision ENT Ears, Nose, Mouth, and Throat: Denies change in voice, Denies dizziness, Denies neck pain, Denies sore throat and Denies throat swelling Cardiovascular Cardiovascular: Denies chest pain, Denies irregular heart rhythm, Denies light headedness, Denies palpitations, Denies dyspnea, Denies dyspnea on exertion and Denies orthopnea Respiratory Respiratory: Denies cough, Denies dyspnea, Denies dyspnea on exertion and Denies wheezing Gastrointestinal Gastrointestinal: Denies abdominal pain, Denies change in bowel habits, Denies diarrhea, Denies nausea and Denies vomiting Musculoskeletal Musculoskeletal: Denies neck pain and Denies numbness Integumentary/Breasts Skin/Breast: Denies pruritus, Denies erythema, Denies rash and Reports wounds Neurologic Neurologic: Denies behavioral changes, Denies confusion, Denies dizziness, Denies frequent falls, Denies loss of vision, Denies numbness and Denies weakness Psychiatric Psychiatric: Denies anxiety, Denies behavioral changes, Denies confusion, Denies depression, Denies homicidal ideation and Denies suicidal ideation Endocrine Endocrine: Denies fatigue, Denies flushing and Denies palpitations Hematologic/Lymphatic Hematologic/Lymphatic: Denies easy bruising Allergic/Immunologic Allergic/Immunologic: Denies urticaria, Denies throat swelling and Denies wheezing Patient History <Krishna Alarcon PA-C - Last Filed: 02/13/25 16:18> Medical History Hypertension Pelvic pain Screening for HPV (human papillomavirus) Cervical cancer screening Neck pain Back pain Back pain Acute infective gastroenteritis Allergies Headache Anemia Vertigo Ovarian cyst Migraine Right ankle sprain Surgical History Anesthesia History of ankle surgery (~2007) No pertinent past surgical history Status post dilation and curettage (~2013) History of third molar tooth extraction Family History Father Hypertension Mother Age: 78 Hypertension High cholesterol Grandfather Stroke Grandmother Broken hip Social History household members: spouse alcohol intake: never alcohol intake frequency: holidays/special occasions only Exam <Krishna Alarcon PA-C - Last Filed: 02/13/25 16:18> Narrative Exam Narrative: Const General:?cooperative, healthy appearing and comfortable [facility] Head:?normal to inspection Ears:?hearing grossly normal bilaterally Nose:?external nose normal Face and sinus:?normal facial exam and sinuses nontender Mouth:?oral mucosae normal Throat:?posterior oropharynx normal Eyes General:?appearance normal, both eyes and all related structures Neck Neck:?normal visual inspection and no lymphadenopathy noted Resp Effort & Inspection:?normal respiratory effort Auscultation:?clear to auscultation bilaterally Cardio Rate:?regular rate Rhythm:?regular rhythm Integumentary There is a small 1 cm flap laceration to the pad of the left pointer finger. Wound is not actively bleeding at this time. Neurovascularly intact. Neuro General:?patient alert, patient awake and patient oriented x3 Initial Vital Signs Initial Vital Signs: Vital Signs Temperature 97.1 F L 02/13/25 14:35 Pulse Rate 82 02/13/25 14:35 Respiratory Rate 16 02/13/25 14:35 Blood Pressure 139/94 H 02/13/25 14:35 Pulse Oximetry 98 02/13/25 14:35 Oxygen Delivery Method Room Air 02/13/25 14:35 <Dinorah Delgado DO - Last Filed: 02/14/25 07:55> Initial Vital Signs Initial Vital Signs: Vital Signs Temperature 97.1 F L 02/13/25 14:35 Pulse Rate 82 02/13/25 14:35 Respiratory Rate 16 02/13/25 14:35 Blood Pressure 139/94 H 02/13/25 14:35 Pulse Oximetry 98 02/13/25 14:35 Oxygen Delivery Method Room Air 02/13/25 14:35 Procedures <Krishna Alarcon PA-C - Last Filed: 02/13/25 16:18> Laceration Repair Laceration 1: Site: hand Side (If applicable): left Size (cm): 1 Description: flap Depth: simple, single layer Pre-repair: wound explored, irrigated extensively and deep structures intact Skin layer closed with: dermabond Course <Krishna Alarcon PA-C - Last Filed: 02/13/25 16:18> Orders Ordered: Discontinued Medications Diphtheria/Tetanus/Acell Pertussis (Tet,Diph,Pertuss(Acell),Vac/Pf 0.5 Ml Syringe) 0.5 ml IM .ONCE ONE Stop: 02/13/25 15:33 Last Admin: 02/13/25 16:06 Dose: 0.5 ml Documented By: KAYLIN Vital Signs Vital signs: Vital Signs - 8 hr 02/13/25 14:35 Temperature 97.1 F L Pulse Rate 82 Respiratory Rate 16 Blood Pressure 139/94 H Pulse Oximetry 98 Oxygen Delivery Method Room Air <Dinorah Delgado DO - Last Filed: 02/14/25 07:55> Orders Ordered: Discontinued Medications Diphtheria/Tetanus/Acell Pertussis (Tet,Diph,Pertuss(Acell),Vac/Pf 0.5 Ml Syringe) 0.5 ml IM .ONCE ONE Stop: 02/13/25 15:33 Last Admin: 02/13/25 16:06 Dose: 0.5 ml Documented By: KAYLIN Vital Signs Vital signs: Vital Signs - 8 hr 02/13/25 14:35 Temperature 97.1 F L Pulse Rate 82 Respiratory Rate 16 Blood Pressure 139/94 H Pulse Oximetry 98 Oxygen Delivery Method Room Air MDM - Wound/Laceration <Krishna Alarcon PA-C - Last Filed: 02/13/25 16:18> MDM Narrative Medical decision making narrative: 59-year-old female presents to the ED status post a left pointer finger injury sustained at work today. There is a shallow 1 cm flap lesion to the tip of the left pointer finger. No indication for imaging at this time. Will soak the wound, reassess. Will update Tdap. Patient's wound was soaked and cleaned well. Given that it is a superficial flap lesion, and that it is already beginning to approximate in heel, glue was applied, and wound bandaged. Tetanus was updated. Signs of infection, wound care discussed with patient. ED return precautions discussed with patient. Patient verbalized understanding. Medical records reviewed: Yes Discharge Plan Departure Patient Disposition: Home Clinical Impression: Laceration Instructions: DI for Minor Laceration Activity Restrictions/Additional Instructions: You were evaluated in the emergency department today for a finger injury. Your laceration was soaked well, repaired with some glue. Your tetanus was updated today, which is valid for the next 10 years. Please watch for signs of infection including worsening redness, warmth, discharge, swelling, pain. Return to the ED if you note any signs of infection. Prescriptions: No Action atorvastatin 40 mg tablet 40 mg PO DAILY Qty: 90 3RF losartan 50 mg tablet 50 mg PO DAILY Qty: 30 0RF ferrous sulfate [iron] 325 mg (65 mg iron) Tablet 650 mg PO BEDTIME Referrals: Francisca Skelton, [facility] [Primary Care Provider, Family Practice] Stand Alone Forms: Patient Portal/API ED Sign-out <Dinorah Delgado DO - Last Filed: 02/14/25 07:55> Cosign ED Attending Elmo Attestation: I was immediately available in the department for consultation.
[2025-02-13] MEDS: TET,DIPH,PERTUSS(ACELL),VAC/PF 0.5 ML SYRINGE IM (16:06)
[2025-02-13 16:36] VITALS: BP 185/107; PULSE 66; RESP 18; O2SAT 98
== END 2025-02-13 16:37 | disposition home or self-care (01) ==
PROVIDERS: Emergency Provider Student in an Organized Health Care Education/Training Program; PCP Nurse Practitioner Family
DX: S61.211A Laceration without foreign body of left index finger without damage to nail, initial encounter (principal); M79.645 Pain in left finger(s); Z23 Encounter for immunization; W31.82XA Contact with other commercial machinery, initial encounter
CPT/HCPCS: 12001; 99283; 90715